=== PATIENT | female | born 1945 | race Caucasian/White ===

== ENCOUNTER 2024-12-01 15:18 | Inpatient (IN) | payer MEDICARE, OTHER ==
[~2024-12-01] VITALS: Ht 157.5 cm; Wt 87.7 kg
--- NOTE | 2024-12-01 15:31 | ED.PDOC ---
History of Present Illness HPI Comments 79-year-old female with PMHx HTN, A-Fib, Neuropathy brought in by EMS presents with a chief complaint of wounds to bilateral legs. Patient states that she has bilateral wounds to her legs. Patients legs are red in color and bumped her leg into the set and exhibit designer and the wound began to leak pus. Patients leg wound has saturated the EMS gurney with leaking. Chief Complaint: Extremity Swelling Time Seen by MD: 15:23 Reviewed Notes: Nurses Notes, Medications, Allergies Allergies: Coded Allergies: Cephalexin (Verified Allergy, Severe, 12/01/24) Penicillins (Verified Allergy, Severe, 12/01/24) Information Source: Patient Mode of Arrival: Ambulatory Severity: Moderate Timing: Days Duration: Since onset Prehospital treatment: None Past Medical History PAST MEDICAL HISTORY: AFIB, HTN Surgical History: Cholecystectomy, Tonsillectomy Surgical History (Other): CATARACTS DIALYSIS RN History: Denies all DIALYSIS RN Hx Family History Family History: Reviewed,noncontributory to illness Social History Smoker: Non-Smoker Alcohol: Denies ETOH Use Drugs: Denies Drug Use Lives In: Home Constitutional: denies: chills, diaphoresis, fatigue, fever, malaise, sweats, weakness, others EENTM: denies: blurred vision, double vision, ear bleeding, ear discharge, ear drainage, ear pain, ear ringing, eye pain, eye redness, hearing loss, mouth pain, mouth swelling, nasal discharge, nose bleeding, nose congestion, nose pain, photophobia, tearing, throat pain, throat swelling, voice changes, others Respiratory: denies: cough, hemoptysis, orthopnea, SOB at rest, shortness of breath, SOB with excertion, stridor, wheezing, others Cardiovascular: denies: chest pain, dizzy spells, diaphoresis, Dyspnea on exertion, edema, irregular heart beat, left arm pain, lightheadedness, palpitations, PND, syncope, others Gastrointestinal: denies: abdomen distended, abdominal pain, blood streaked bowels, constipated, diarrhea, dysphagia, difficulty swallowing, hematemesis, melena, nausea, poor appetite, poor fluid intake, rectal bleeding, rectal pain, vomiting, others Genitourinary: denies: abnormal vagina bleeding, burning, dyspareunia, dysuria, flank pain, frequency, hematuria, incontinence, pain, , vagina discharge, urgency, others Neurological: denies: dizziness, fainting, headache, left sided numbness, left sided weakness, numbness, paresthesia, pre-existing deficit, right sided numbness, right sided weakness, seizure, speech problems, tingling, tremors, weakness, others Musculoskeletal: denies: back pain, gout, joint pain, joint swelling, muscle pain, muscle stiffness, neck pain, others Integumetry: reports: wounds (BILATERAL LEGS); denies: bruises, change in color, change in hair/nails, dryness, laceration, lesions, lumps, rash, others Allergic/Immunocompromised: denies: Difficulty Healing, Frequent Infections, Hives, Itching, others Hematologic/Lymphatic: denies: anemia, blood clots, easy bleeding, easy bruisin g, swollen glands, others Endocrine: denies: excessive hunger, excessive sweating, excessive thirst, excessive urination, flushing, intolerance to cold, intolerance to heat, unexplained weight gain, unexplained weight loss, others Psychiatric: denies: anxiety, bipolar disorder, depression, hopeless, panic disorder, schizophrenia, sleepless, suicidal, others All Other Systems: Reviewed and Negative Physical Exam General Appearance: Moderate Distress, Obese HEENT: Normal ENT Inspection, Pharynx Normal, TMs Normal Neck: Full Range of Motion, Non-Tender, Normal, Normal Inspection Respiratory: Chest Non-Tender, Lungs Clear, No Accessory Muscle Use, No Respiratory Distress, Normal Breath Sounds Cardiovascular: No Edema, No JVD, No Murmur, No Gallop, Normal Peripheral Pulses, Regular Rate/Rhythm Breast Exam: Deferred Gastrointestinal: No Organomegaly, Non Tender, No Pulsatile Mass, Normal Bowel Sounds, Soft Genitalia: Deferred Pelvic: Deferred Rectal: Deferred Extremities: Decreased range of motion, Inflammation, Normal capillary refill, Pedal edema Musculoskeletal : Apperance: Normal Neurologic: Alert, molecular pathologist II-XII nml as Tested, No Motor Deficits, Normal Affect, Normal Mood, No Sensory Deficits Cerebellar Function: Normal Reflexes: Normal Skin: Dry, Normal Color, Warm Lymphatic: No Adenopathy Was a procedure done? Was a procedure done?: No Differential Dx Considerations may include: Cellulitis, osteomyelitis, DVT X-Ray, Labs, Meds, VS Vital Signs Date Time Temp Pulse Resp B/P (MAP) Pulse Ox O2 Delivery O2 Flow Rate FiO2 12/01/24 17:21 97.7 95 13 115/60 (78) 95 97.7 12/01/24 15:59 97.8 98 14 99/39 (59) 95 97.8 12/01/24 15:56 Room Air* 0 21 12/01/24 15:24 97.8 111 16 99/66 (77) 97 97.8 Lab Test 12/01/24 15:40 Range/Units White Blood Count 10.8 4.4-10.8 10^3/uL Red Blood Count 4.42 4.0-5.20 10^6/uL Hemoglobin 13.3 12.2-16.2 g/dL Hematocrit 40.6 36.0-46.0 % Mean Corpuscular Volume 91.7 80.0-100.0 fL Mean Corpuscular Hemoglobin 30.1 28.0-32.0 pg Mean Corpuscular Hemoglobin Concent 32.8 32.0-36.0 g/dL Red Cell Distribution Width 14.3 11.8-14.3 % Platelet Count 379 140-450 10^3/uL Mean Platelet Volume 8.4 6.9-10.8 fL Neutrophils (%) (Auto) 74.0 37.0-80.0 % Lymphocytes (%) (Auto) 15.6 10.0-50.0 % Monocytes (%) (Auto) 8.0 0.0-12.0 % Eosinophils (%) (Auto) 1.8 0.0-7.0 % Basophils (%) (Auto) 0.6 0.0-2.0 % Neutrophils # (Auto) 8.0 1.6-8.6 10 ^3/uL Lymphocytes # (Auto) 1.7 0.4-5.4 10 ^3/uL Monocytes # (Auto) 0.9 0-1.3 10 ^3/uL Eosinophils # (Auto) 0.2 0-0.8 10 ^3/uL Basophils # (Auto) 0.1 0-0.2 10 ^3/uL Nucleated Red Blood Cells 0.1 % Erythrocyte Sedimentation Rate 30 H 0-20 mm/hr Sodium Level 140 136-145 mmol/L Potassium Level 4.5 3.5-5.1 mmol/L Chloride Level 103 98-107 mmol/L Carbon Dioxide Level 29 20-31 mmol/L Anion Gap 8 5-15 Blood Urea Nitrogen 34 H 9-23 mg/dL Creatinine 1.25 H 0.550-1.02 mg/dL Glomerular Filtration Rate Calc 43 >90 mL/min BUN/Creatinine Ratio 27.2 H 10.0-20.0 Serum Glucose 140 H 74-106 mg/dL Calcium Level 9.9 8.7-10.4 mg/dL Current Medications Medications (Trade) Dose Ordered Sig/Priscila Route Start Time Stop Time Status Last Admin Clindamycin Phosphate 50 ml @ 50 mls/hr ONCE ONCE IV 12/01/24 15:45 12/01/24 16:44 DC 12/01/24 16:04 Ultrasound of the lower extremities are negative for DVT The CBC and chemistry panel are within normal limits The BUN is 34 and the creatinine is 1.5 The patient was started on clindamycin IV piggyback The patient was being admitted to the hospitalist Images Reviewed?: Images reviewed and evaluated by me Time of 1ST Reevaluation: 15:53 Reevaluation 1ST: Unchanged Patient Education/Counseling: Diagnosis, Treatment, Prognosis Family Education/Counseling: No Family Present Departure 1 Departure Time of Disposition: 19:26 Impression: Primary Impression: Pedal edema Additional Impression: Bilateral lower leg cellulitis Disposition: ADMITTED INPATIENT Admit to: Med Surg Condition: Fair Critical Care Note Critical Care Time?: No Stability Stability form required: Yes Unstable for transfer: ED Physician Assesment (Clinical assesment) Heart Score Heart Score: Heart Score Response (Comments) Value History N/A 0 EKG N/A 0 Age N/A 0 Risk Factors N/A 0 Troponin N/A 0 Total 0 I personally scribed for DARLENE CRUZ MD ([email or web address]) on 12/01/24 at 15:31. Electronically submitted by Nikos Patrick ([email or web address]). DARLENE CRUZ MD Dec 01, 2024 15:31
[2024-12-01 16:02] LABS: Basophils # (auto) 0.1 10 ^3/uL (0-0.2); Basophils % (auto) 0.6 % (0.0-2.0); Eosinophils # (auto) 0.2 10 ^3/uL (0-0.8); Eosinophils % (auto) 1.8 % (0.0-7.0); Hematocrit 40.6 % (36.0-46.0); Hemoglobin 13.3 g/dL (12.2-16.2); Lymphocytes # (auto) 1.7 10 ^3/uL (0.4-5.4); Lymphocytes % (auto) 15.6 % (10.0-50.0); Mean Corpuscular Hemoglobin 30.1 pg (28.0-32.0); Mean Corpuscular Hgb Conc. 32.8 g/dL (32.0-36.0); Mean Corpuscular Volume 91.7 fL (80.0-100.0); Monocytes # (auto) 0.9 10 ^3/uL (0-1.3); Nucleated Red Blood Cells % 0.1 %; Platelet Count (auto) 379 10^3/uL (140-450); Red Blood Cells 4.42 10^6/uL (4.0-5.20); Red Cell Distribution Width 14.3 % (11.8-14.3); White Blood Cell 10.8 10^3/uL (4.4-10.8)
[2024-12-01] MEDS: CLINDAMYCIN 600MG IV 50 ML IV ONE (16:04)
[2024-12-01 16:09] LABS: Chloride 103 mmol/L (98-107); Potassium 4.5 mmol/L (3.5-5.1); Sodium 140 mmol/L (136-145)
[2024-12-01 16:10] LABS: Anion Gap 8 (5-15); Calcium 9.9 mg/dL (8.7-10.4); Carbon Dioxide 29 mmol/L (20-31)
[2024-12-01 16:15] LABS: BUN/Creatinine Ratio 27.2 (10.0-20.0); Blood Urea Nitrogen 34 mg/dL (9-23); Glucose 140 mg/dL (74-106)
[2024-12-01 16:44] LABS: Erythrocyte Sedimentation Rate 30 mm/hr (0-20)
--- NOTE | 2024-12-01 18:40 | DVH ---
Bilateral lower extremity venous duplex Clinical History: swelling and redness Comparison: None Technique: Duplex Doppler evaluation of the deep venous systems of both lower extremities from the common femora l veins to the popliteal veins including color Doppler and spectral/pulsed waveform analysis was perf ormed. Findings: RIGHT SIDE: The common femoral vein demonstrates appropriate compressibility and waveform variability. There is compressibility/patency of the great saphenous vein at the proximal thigh. The femoral vein demonstrates appropriate compressibility and waveform variability. The deep femoral vein demonstrates appropriate compressibility and waveform variability. The popliteal vein demonstrates appropriate compressibility and waveform variability. There is normal compressibility at the tibioperoneal trunk. LEFT SIDE: The common femoral vein demonstrates appropriate compressibility and waveform variability. There is compressibility/patency of the great saphenous vein at the proximal thigh. The femoral vein demonstrates appropriate compressibility and waveform variability. The deep femoral vein demonstrates appropriate compressibility and waveform variability. The popliteal vein demonstrates appropriate compressibility and waveform variability. There is normal compressibility at the tibioperoneal trunk. Impression: No right or left femoropopliteal venous thrombosis.
[2024-12-01 20:09] VITALS: PULSE 121; RESP 15; O2SAT 94
[2024-12-01 21:35] LABS: Urine Bacteria None Seen /hpf (None Seen)
[2024-12-01 21:52] LABS: Urine Blood Negative /uL (Negative); Urine Clarity Turbid (Clear); Urine Color Yellow (Yellow); Urine Protein, UAD TRACE (Negative); Urine Specific Gravity 1.021 (1.001-1.035); Urine Squamous Epithelial Cell FEW /hpf (<5); Urine Urobilinogen 2 mg/dL (Negative); Urine WBC 8 /HPF (0-5); Urine pH 5.5 (5.0-9.0)
[2024-12-01] MEDS ORDERED: APIX5TAB PO (22:46)
[2024-12-01] MEDS ORDERED: LOSA-535 PO (22:46)
[2024-12-01] MEDS ORDERED: TRAM50TA2 PO (22:46)
[2024-12-01] MEDS ORDERED: BACL20TA PO (22:46)
[2024-12-01] MEDS ORDERED: PANT40T PO (23:04)
--- NOTE | 2024-12-01 23:05 | DVHHPRES ---
History of Present Illness Resident Creating Document: HERNAN BARRERA RESIDENT Reason for Visit: cellulitis History of Present Illness Patient is an 79-year-old female with a past medical history of AFib, Neuropathy, hypertension, bilateral pitting edema presents to the ED after sustaining a cut to her right to big toe. 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 Because of her neuropathy, she does not feel any pains and there are multiple wounds with pus on her legs bilaterally. Patient denies any fever, chills, nausea or chest pain, shortness of breaths, nauseate of vomiting. Venous scan was negative for DVT. Patient is sometime emotional as her in October 2024. Past medical history: AFib, hyperlipidemia, neuropathy in both hands and feet Surgical history: Cholecystectomy, Tonsillectomy Social history: Patient lives at home does not drink or smoke recently , lives alone and cooks for self Family history: Noncontributory Medication history: Patient takes Eliquis, tramadol, baclofen, losartan, and Cymbalta Past Medical History See HPI Smoke: No Review of Systems Review of Systems Constitutional: Denies fever no chills no feeling of malaise HEENT: Denies headache, ear pain, ear discharges, conjunctivitis, nasal discharge throat pain Cardiovascular: Denies chest pain, palpitation, orthopnea, PND; resolving pedal edema Respiratory: Denies shortness of breath, cough cough, sputum production, hemoptysis, GI: Denies abdominal pain, nausea, vomiting, diarrhea, hematemesis, hematochezia, : Denies frequency, urgency, hematuria, Endocrine: Denies unintentional weight gain or weight loss, feeling of hot flashes, Gera: Denies easy bruising, bleeding disorders, epistaxis Musculoskeletal: arthritis in her hands Psych: No evidence of depression, jana, suicidal ideation Allergies: Coded Allergies: Cephalexin (Verified Allergy, Severe, 12/01/24) Penicillins (Verified Allergy, Severe, 12/01/24) Medications Current Medications Medications Dose Ordered Sig/Priscila Route Start Time Stop Time Status Last Admin Dose Admin Clindamycin Phosphate 50 ml @ 50 mls/hr Q8HR IV 12/02/24 06:00 UNV Exam Vital Signs Vital Signs Date Time Temp Pulse Resp B/P (MAP) Pulse Ox O2 Delivery O2 Flow Rate FiO2 12/01/24 22:16 98.0 106 11 122/45 (70) 96 98.0 12/01/24 20:09 Room Air* 0 21 Exam General Appearance: Alert, Oriented X3, Cooperative, No acute distress HEENT: Atraumatic, PERRLA, EOMI, Mucous membrane moist/pink Respiratory: Clear to auscultation, Normal air movement Cardiovascular: Regular rate, Normal S1, Normal S2, No murmurs, no chest wall tenderness Abdominal: NO distention, no tenderness, bowel sounds present, no scars noted Extremities: No clubbing, No cyanosis, resolving edema, Normal pulses, No tenderness/swelling Skin: breakdown, resolving edema, red, poorly demarcation Neuro: Normal gait, Normal speech, Strength at 5/5 X4 ext, Normal tone, Sensation intact, Cranial nerves 3-12 NL, Reflexes 2+ Psych/Mental Status: Mental status NL, Mood NL Labs/Xrays Labs Test 12/01/24 21:15 12/01/24 15:40 Range/Units Urine Color Yellow Yellow Urine Clarity Turbid H Clear Urine pH 5.5 5.0-9.0 Urine Specific [place] 1.021 1.001-1.035 Urine Protein Trace H Negative Urine Ketones Negative Negative Urine Blood Negative Negative /uL Urine Nitrite Negative Negative Urine Bilirubin Negative Negative Urine Urobilinogen 2 H Negative mg/dL Urine Leukocyte Esterase Trace Negative /uL Urine RBC 3 0 - 4 /hpf Urine Microscopic WBC 8 H 0-5 /HPF Urine Squamous Epithelial Cells Few <5 /hpf Urine Bacteria None seen None Seen /hpf Urine Glucose Normal Normal mg/dL White Blood Count 10.8 4.4-10.8 10^3/uL Red Blood Count 4.42 4.0-5.20 10^6/uL Hemoglobin 13.3 12.2-16.2 g/dL Hematocrit 40.6 36.0-46.0 % Mean Corpuscular Volume 91.7 80.0-100.0 fL Mean Corpuscular Hemoglobin 30.1 28.0-32.0 pg Mean Corpuscular Hemoglobin Concent 32.8 32.0-36.0 g/dL Red Cell Distribution Width 14.3 11.8-14.3 % Platelet Count 379 140-450 10^3/uL Mean Platelet Volume 8.4 6.9-10.8 fL Neutrophils (%) (Auto) 74.0 37.0-80.0 % Lymphocytes (%) (Auto) 15.6 10.0-50.0 % Monocytes (%) (Auto) 8.0 0.0-12.0 % Eosinophils (%) (Auto) 1.8 0.0-7.0 % Basophils (%) (Auto) 0.6 0.0-2.0 % Neutrophils # (Auto) 8.0 1.6-8.6 10 ^3/uL Lymphocytes # (Auto) 1.7 0.4-5.4 10 ^3/uL Monocytes # (Auto) 0.9 0-1.3 10 ^3/uL Eosinophils # (Auto) 0.2 0-0.8 10 ^3/uL Basophils # (Auto) 0.1 0-0.2 10 ^3/uL Nucleated Red Blood Cells 0.1 % Erythrocyte Sedimentation Rate 30 H 0-20 mm/hr Sodium Level 140 136-145 mmol/L Potassium Level 4.5 3.5-5.1 mmol/L Chloride Level 103 98-107 mmol/L Carbon Dioxide Level 29 20-31 mmol/L Anion Gap 8 5-15 Blood Urea Nitrogen 34 H 9-23 mg/dL Creatinine 1.25 H 0.550-1.02 mg/dL Glomerular Filtration Rate Calc 43 >90 mL/min BUN/Creatinine Ratio 27.2 H 10.0-20.0 Serum Glucose 140 H 74-106 mg/dL Calcium Level 9.9 8.7-10.4 mg/dL Assessment/Plan Assessment/Plan ASSESSMENT Sepsis secondary to cellulitis Bilateral cellulitis BHANU due to VMN Obesity prediabetic Elevated ESR Lactic acidosis AFIB Neuropathy PLAN Continue antibiotics (Clindamycin) Give IV Hydration and encourage oral hydration wound care consult Continue her home medications DVT prophylaxis:on Eliquis ( home medication) Diet: cardiac diet GI Prophylaxis: protonix Goal of care discussed for more than 25 minutes: Full code Case and plan discussed with Dr. Nevarez Plan discussed with: Patient My Orders Orders - HERNAN BARRERA RESIDENT Procedure Category Date Status Time Admit ADMIT 12/01/24 Transmitted 22:37 Code Status CODE 12/01/24 Transmitted 22:37 Vital Signs CANDIDO 12/01/24 In Process 22:37 Review Orders With CANDIDO 3/26/25 In Process Adm. 22:37 Notify Md Of Changes CANDIDO 12/01/24 In Process From Base 22:37 Advance Directive CANDIDO 12/01/24 In Process 22:37 Patient Condition ORDERS 12/01/24 Transmitted 22:37 Allergies CANDIDO 12/01/24 In Process 22:37 Stat Ekg For Chest CANDIDO 12/01/24 In Process Pain 22:37 Notify Md Of Changes CANDIDO 12/01/24 In Process From Base 22:37 Portrait Painter For CANDIDO 12/01/24 In Process 24 Hours 22:37 Complete Blood Count LAB 12/02/24 Verified 04:00 Comprehensive LAB 12/02/24 Verified Metabolic Panel 04:00 Hemoglobin A1c LAB 12/01/24 In Process 22:37 Clindamycin 300mg Iv PHA 12/02/24 Logged (Cleocin Iv) 06:00 Date of Service: Dec 01, 2024 Billing Provider: AYLA NEVAREZ MD Common Visit Codes: 73311-HMRSPAF INP/OBS CARE (HIGH) Secondary Visit Codes: 52946-[id number] CARE PLAN 30 MINUTES HERNAN BARRERA RESIDENT Dec 01, 2024 23:05 AYLA NEVAREZ MD Dec 02, 2024 11:31
[2024-12-01] MEDS: APIXABAN 5 MG TAB PO SCH (23:20)
[2024-12-01] MEDS: SODIUM CHLORIDE 0.9% 1,000 ML IV SCH (23:21)
[2024-12-01 23:44] LABS: Lactic Acid w/Reflex 2.2 mmol/L (0.4-2.0)
[2024-12-02] VITALS (10 sets, daily range): BP systolic 100–120; BP diastolic 29–78; PULSE 76–96; RESP 16–19; TEMP 98–98.7; O2SAT 90–95
[2024-12-02] MEDS: traMADol HCL 50 MG TAB PO PRN ×2 (02:49→21:30)
[2024-12-02] MEDS: BACLOFEN 10 MG TAB PO SCH (05:14)
[2024-12-02] MEDS: CLINDAMYCIN 300MG IV 50 ML IV SCH (05:14)
[2024-12-02 05:39] LABS: Basophils # (auto) 0.1 10 ^3/uL (0-0.2); Basophils % (auto) 0.6 % (0.0-2.0); Eosinophils # (auto) 0.2 10 ^3/uL (0-0.8); Hematocrit 39.4 % (36.0-46.0); Hemoglobin 12.7 g/dL (12.2-16.2); Lymphocytes # (auto) 2.1 10 ^3/uL (0.4-5.4); Lymphocytes % (auto) 21.8 % (10.0-50.0); Mean Corpuscular Hemoglobin 30.1 pg (28.0-32.0); Mean Corpuscular Hgb Conc. 32.2 g/dL (32.0-36.0); Mean Corpuscular Volume 93.3 fL (80.0-100.0); Monocytes # (auto) 0.9 10 ^3/uL (0-1.3); Monocytes % (auto) 9.8 % (0.0-12.0); Neutrophils # (auto) 6.2 10 ^3/uL (1.6-8.6); Neutrophils % (auto) 65.8 % (37.0-80.0); Nucleated Red Blood Cells % 0.1 %; Platelet Count (auto) 354 10^3/uL (140-450); Red Blood Cells 4.22 10^6/uL (4.0-5.20); Red Cell Distribution Width 14.5 % (11.8-14.3); White Blood Cell 9.5 10^3/uL (4.4-10.8)
[2024-12-02 05:55] LABS: Alanine Aminotransferase 11 U/L (7-40); Albumin 3.3 g/dL (3.2-4.8); Alkaline Phosphatase 102 U/L (46-116); Anion Gap 7 (5-15); Aspartate Aminotransferase 13 U/L (13-40); BUN/Creatinine Ratio 24.2 (10.0-20.0); Bilirubin, Total 0.5 mg/dL (0.2-1.0); Blood Urea Nitrogen 24 mg/dL (9-23); Calcium 9.3 mg/dL (8.7-10.4); Carbon Dioxide 24 mmol/L (20-31); Chloride 108 mmol/L (98-107); Glucose 93 mg/dL (74-106); Potassium 4.2 mmol/L (3.5-5.1); Sodium 139 mmol/L (136-145); Total Protein 5.7 g/dL (5.7-8.2)
[2024-12-02] MEDS ORDERED: AMIO200T13 PO (05:58)
[2024-12-02] MEDS ORDERED: VANCOMYCIN PER PHARMACY 0 MG IV SCH (06:00)
[2024-12-02] MEDS: SODIUM CHLORIDE 0.9% 1,000 ML IV SCH (06:00)
[2024-12-02 06:08] LABS: Triglycerides 126 mg/dL (< 150)
[2024-12-02 06:09] LABS: LDL Cholesterol 70 mg/dL (< 100)
[2024-12-02 06:11] LABS: Cholesterol 137 mg/dL (< 200)
[2024-12-02 06:16] LABS: HDL Cholesterol 37 mg/dL (40-59)
[2024-12-02] MEDS: VANCOMYCIN 1GM/250mL NS or D5W KIT IV SCH (06:37)
--- NOTE | 2024-12-02 08:56 | DVH ---
EXAM: XY CHEST PORTABLE Indication: pulmonary edema to rule out Technique: Single frontal view of the chest was obtained Comparison: None FINDINGS: Lines and Tubes: None Lungs: No focal consolidation. Pleura: No effusion. No pneumothorax. Cardiomediastinal contours: Cardiomegaly Atherosclerotic vascular calcifications of the thoracic aort a are noted. Bones: No acute osseous abnormality. IMPRESSION: No acute cardiopulmonary disease.
[2024-12-02] MEDS: CEFEPIME 1GM/ 50ML 50 ML IV SCH (09:07)
[2024-12-02] MEDS: PANTOPRAZOLE 40 MG/10 ML VIAL INJ IV SCH (09:08)
[2024-12-02] MEDS: AMIODARONE HCL 200 MG TAB PO SCH (09:09)
[2024-12-02] MEDS: VANCOMYCIN 1.25GM/250ML 250 ML IV SCH (09:09)
[2024-12-02] MEDS ORDERED: APIXABAN 5 MG TAB PO SCH (10:00)
[2024-12-02] MEDS ORDERED: LOSARTAN POTASSIUM 50 MG TAB PO SCH (10:00)
--- NOTE | 2024-12-02 10:29 | DVHPNRES ---
Progress Note Date Seen: Dec 02, 2024 Resident Creating Document: RUCHI KRAUSE RESIDENT Has the PT tested + for MRSA If YES, has PT been informed?: No Medical Necessity Reason Pt with a Central, PICC or Fol: No Subjective Review of Systems Patient is an 79-year-old female with a past medical history of AFib, N europathy, hypertension chronic venous stasis presents to the ED after sustaining a cut to her right leg. 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 Because of her neuropathy, she does not feel any pains and there are multiple wounds with pus on her legs bilaterally. Patient denies any fever, chills, nausea or chest pain, shortness of breaths, nauseate of vomiting. Venous scan was negative for DVT. Patient is sometime emotional as her in October 2024. Past medical history: AFib, hyperlipidemia, neuropathy in both hands and feet Surgical history: Cholecystectomy, Tonsillectomy Social history: Patient lives at home does not drink or smoke recently , lives alone and cooks for self Family history: Noncontributory Medication history: Patient takes Eliquis, tramadol, baclofen, losartan, and Cymbalta Past Medical History See HPI Smoke: No Objective vital signs Vital Sign Date Time Temp Pulse Resp B/P (MAP) Pulse Ox O2 Delivery O2 Flow Rate FiO2 12/02/24 10:00 89 18 94 Room Air* 0 21 12/02/24 09:30 98.0 108/48 (68) 98.0 Total Intake and Output 12/01/24 12/01/24 12/02/24 15:00 23:00 07:00 Intake Total 50 ml 725 ml Output Total 200 ml Balance 50 ml 525 ml medications Current Medications Medications Dose Ordered Sig/Priscila Route Start Time Stop Time Status Last Admin Dose Admin Tramadol HCl 50 mg [id number] PRN PO 12/01/24 23:15 12/02/24 02:49 50 MG Baclofen 20 mg TID PO 12/02/24 06:00 12/02/24 05:14 20 MG Apixaban 5 mg BID PO 12/01/24 23:14 12/02/24 09:08 5 MG Sodium Chloride 1,000 ml @ 100 mls/hr Q10H IV 12/02/24 06:00 Cefepime HCl 50 ml @ 12.5 mls/hr Q12HR IV 12/02/24 10:00 Hold 12/02/24 09:07 12.5 MLS/HR Vancomycin HCl 0 ml @ 0 mls/hr UD IV 12/02/24 06:00 Pantoprazole Sodium 40 mg DAILY IV 12/02/24 10:00 12/02/24 09:08 40 MG Amiodarone HCl 200 mg DAILY PO 12/02/24 10:00 12/02/24 09:09 200 MG Vancomycin HCl 250 ml @ 200 mls/hr DAILY@0900 IV 12/03/24 09:00 Examination General Appearance: Alert, Oriented X3, Cooperative, No acute distress HEENT: Atraumatic, PERRLA, EOMI, Mucous membrane moist/pink Respiratory: Clear to auscultation, Normal air movement Cardiovascular: Irregularly irregular; Normal S1, Normal S2, No murmurs, no chest wall tenderness Abdominal: No distention, no tenderness, bowel sounds present, no scars noted Extremities: chronic venous insufficiency bilateral, edema, redness and pus in the right leg, no abscess Neuro: Normal gait, Normal speech, Strength at 5/5 X4 ext, Normal tone, Sensation intact, Cranial nerves 3-12 NL, Reflexes 2+ Psych/Mental Status: Mental status NL, Mood NL laboratory and microbiology Laboratory Tests 12/02/24 04:48 Test 12/02/24 04:48 Range/Units Serum Glucose 93 74-106 mg/dL Labs and/or images reviewed: Labs reviewed by me, Image(s) reviewed by me Problem List/Assessment/Plan Problem List/Assessment/Plan #Sepsis secondary to cellulitis in right leg #Ruled out abscess #Chronic venous stasis dermatitis #BHANU due to VMN #Obesity #prediabetic #Lactic acidosis #A fib #Neuropathy PLAN Continue antibiotics: cefepime + vancomycin CT scan: no abscess ECHO: EF 65% left atrium enlargement wound care consult Continue her home medications: amiodarone BPs soft hold on antihypertensive meds DVT prophylaxis:on Eliquis ( home medication) Diet: cardiac diet GI Prophylaxis: Protonix Goal of care discussed for 20 minutes: Full code Case and plan discussed with Dr. Ortega Plan discussed with: Patient, Other (RN) My Orders My Orders Orders - RUCHI KRAUSE RESIDENT Procedure Category Date Status Time Lower Extremity Non CT 12/02/24 Logged Joint Righ 08:55 Drug Screen LAB 12/02/24 Logged 09:37 Addendum Addendum Addendum I was physically present for the wise portions of the service provided to patient by THE RESIDENT. I have reviewed the documentation, discussed the case with resident and agree with the resident's documentation except as noted. Also the patient's clinical case was discussed with the patient's nurse. This medical document was created using an electronic medical record system with computerized dictation system. Although this document has been carefully reviewed, there might still be some phonetic and typographical errors. These areas are purely typographical due to imperfections of the software programs, and do not reflect any compromise in the patient's medical care. Late signature. Date of Service: Dec 02, 2024 Billing Provider: LOWELL ORTEGA MD Common Visit Codes: 66168-[id number] INP/OBS CARE(HIGH) Secondary Visit Codes: [id number]-[id number] CARE PLAN 30 MINUTES (20 minutes) RUCHI KRAUSE RESIDENT Dec 02, 2024 10:29 LOWELL ORTEGA MD Dec 03, 2024 04:54
--- NOTE | 2024-12-02 13:27 | DVHSR ---
APPROVED REPORT EXAM: LIMITED Two-dimensional and M-mode echocardiogram with Doppler and color Doppler. Blood Pressure: 120/53 mmHg INDICATION pitting edema RISK FACTORS Obesity: Height: 5'2, Weight: 190 DIMENSIONS LVDd4.1 (3.8-5.7cm)LA (2D)5.6 (1.9-4.0cm)Aortic Root3.4 (2.0-3.7cm) LVDs2.3 (2.5-4.0cm)LA (MM) (1.9-4.0cm)Aortic Cusp Exc1.4 (1.5-2.0cm) EF (%) 65.0 (55-70%)Rt. Atrium3.7 (1.9-4.0cm)Asc. Aorta3.0 cm IVSd1.0 (0.7-1.1cm)RV (D) (1.8-2.4cm) PWd1.0 (0.7-1.1cm) Mitral Valve MitralMitral Stenosis E/A ratio0.02D MVAcm2 Aortic Valve Aortic ValveAortic Stenosis LVOT Diameter2.0 (1.8-2.4cm)Doppler AVAcm2 Pulmonic Valve V20.95m/s Other Information Quality : Technically LimitedRhythm : Technically limited study due to body habitus.patient position. Conclusion lvef 65% by visual estimate normal rv function no severe valve abnormaliteis noted left atrium enlarged
--- NOTE | 2024-12-02 13:29 | DVH ---
INDICATION: rule out leg abcess COMPARISON: None TECHNIQUE: CT of the bilateral lower extremity was performed without contrast. Volume transverse imag es were obtained and reconstructed in multiple planes using bone and soft tissue algorithms. Radiation Dose Information: CT Dose: CTDI volume is 7.75 mGy. Dose-length product is 346.45 mGy*cm FINDINGS: The alignment is normal. The joint spaces are normal. There is no fracture, dislocation or aggressive osseous lesion. Advanced degenerative changes of bila teral knees. Small-bowel at lateral knee joint effusion. There is diffuse subcutaneous soft-tissue edema and swelling most prominent at the posterolateral asp ect of the left calf and bilateral ankles and bilateral visualized feet. Postsurgical changes of the left ankle joint. IMPRESSION: Findings are suggestive of diffuse cellulitis and/or edema. No fluid collection or abscess. All CT scans at this medical facility are performed using dose modulation techniques as appropriate t o a performed exam including the following: Automated exposure control was utilized; adjustment of th e MA and/or KV according to patient size; and use of iterative reconstruction technique.
[2024-12-03] VITALS (8 sets, daily range): BP systolic 98–143; BP diastolic 44–89; PULSE 95–115; RESP 16–18; TEMP 96.9–98; O2SAT 92–98
[2024-12-03 06:53] LABS: Basophils # (auto) 0.1 10 ^3/uL (0-0.2); Basophils % (auto) 0.7 % (0.0-2.0); Eosinophils # (auto) 0.3 10 ^3/uL (0-0.8); Eosinophils % (auto) 3.2 % (0.0-7.0); Hematocrit 37.7 % (36.0-46.0); Hemoglobin 12.4 g/dL (12.2-16.2); Lymphocytes # (auto) 2.1 10 ^3/uL (0.4-5.4); Lymphocytes % (auto) 25.2 % (10.0-50.0); Mean Corpuscular Hemoglobin 30.1 pg (28.0-32.0); Mean Corpuscular Hgb Conc. 32.8 g/dL (32.0-36.0); Mean Corpuscular Volume 91.7 fL (80.0-100.0); Monocytes # (auto) 0.8 10 ^3/uL (0-1.3); Monocytes % (auto) 10.2 % (0.0-12.0); Neutrophils % (auto) 60.7 % (37.0-80.0); Nucleated Red Blood Cells % 0.1 %; Platelet Count (auto) 314 10^3/uL (140-450); Red Blood Cells 4.11 10^6/uL (4.0-5.20); Red Cell Distribution Width 14.2 % (11.8-14.3); White Blood Cell 8.2 10^3/uL (4.4-10.8)
[2024-12-03 06:57] LABS: Alanine Aminotransferase 10 U/L (7-40); Albumin 3.2 g/dL (3.2-4.8); Alkaline Phosphatase 94 U/L (46-116); Anion Gap 8 (5-15); BUN/Creatinine Ratio 21.4 (10.0-20.0); Bilirubin, Total 0.4 mg/dL (0.2-1.0); Blood Urea Nitrogen 18 mg/dL (9-23); Calcium 9.4 mg/dL (8.7-10.4); Carbon Dioxide 26 mmol/L (20-31); Glucose 85 mg/dL (74-106); Potassium 3.9 mmol/L (3.5-5.1); Sodium 143 mmol/L (136-145)
[2024-12-03 06:58] LABS: Aspartate Aminotransferase 13 U/L (13-40); Chloride 109 mmol/L (98-107); Total Protein 5.5 g/dL (5.7-8.2)
[2024-12-03] MEDS: VANCOMYCIN 1.25GM/250ML 250 ML IV SCH (09:53)
--- NOTE | 2024-12-03 20:53 | DVHPNRES ---
Progress Note Date Seen: Dec 03, 2024 Resident Creating Document: RUCHI KRAUSE RESIDENT Has the PT tested + for MRSA If YES, has PT been informed?: No Medical Necessity Reason Pt with a Central, PICC or Fol: No Medical Necessity Reason Patient is an 79-year-old female with a past medical history of AFib, N europathy, hypertension chronic venous stasis presents to the ED after sustaining a cut to her right leg. 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 Because of her neuropathy, she does not feel any pains and there are multiple wounds with pus on her legs bilaterally. Patient denies any fever, chills, nausea or chest pain, shortness of breaths, nauseate of vomiting. Venous scan was negative for DVT. Patient is sometime emotional as her in October 2024. Elevated D-dimer; DVT ruled out; saturating well on room air with no tachycardia so no need to rule out PE. Past medical history: AFib; hyperlipidemia, neuropathy in both hands and feet Surgical history: Cholecystectomy, Tonsillectomy Social history: Patient lives at home does not drink or smoke recently , lives alone and cooks for self Family history: Noncontributory Medication history: Patient takes Eliquis, tramadol, baclofen, losartan, and Cymbalta Past Medical History See HPI Smoke: No culture positive: gram neg prelim, dc vancomycin Objective vital signs Vital Sign Date Time Temp Pulse Resp B/P (MAP) Pulse Ox O2 Delivery O2 Flow Rate FiO2 12/03/24 17:00 96.9 115 18 142/89 (106) 92 96.9 12/03/24 08:00 Room Air* 0 21 Total Intake and Output 12/02/24 12/02/24 12/03/24 14:59 22:59 06:59 Intake Total 550 ml 200 ml 200 ml Balance 550 ml 200 ml 200 ml medications Current Medications Medications Dose Ordered Sig/Priscila Route Start Time Stop Time Status Last Admin Dose Admin Baclofen 20 mg TID PO 12/02/24 06:00 12/03/24 14:34 20 MG Apixaban 5 mg BID PO 12/01/24 23:14 12/03/24 09:53 5 MG Sodium Chloride 1,000 ml @ 100 mls/hr Q10H IV 12/02/24 06:00 12/03/24 09:54 100 MLS/HR Cefepime HCl 50 ml @ 12.5 mls/hr Q12HR IV 12/02/24 10:00 Hold 12/02/24 09:07 12.5 MLS/HR Pantoprazole Sodium 40 mg DAILY IV 12/02/24 10:00 12/03/24 09:53 40 MG Amiodarone HCl 200 mg DAILY PO 12/02/24 10:00 12/03/24 09:53 200 MG Tramadol HCl 50 mg Q4HPRN PRN PO 12/02/24 21:15 12/03/24 14:34 50 MG Examination General Appearance: Alert, Oriented X3, Cooperative, No acute distress HEENT: Atraumatic, PERRLA, EOMI, Mucous membrane moist/pink Respiratory: Clear to auscultation, Normal air movement Cardiovascular: Irregularly irregular; Normal S1, Normal S2, No murmurs, no chest wall tenderness Abdominal: No distention, no tenderness, bowel sounds present, no scars noted Extremities: chronic venous insufficiency bilateral, edema, redness and pus in the right leg, no abscess, multiple wounds in left leg Neuro: Normal gait, Normal speech, Strength at 5/5 X4 ext, Normal tone, Sensation intact, Cranial nerves 3-12 NL, Reflexes 2+ Psych/Mental Status: Mental status NL, Mood NL laboratory and microbiology Laboratory Tests 12/03/24 05:19 Test 12/03/24 05:19 Range/Units Serum Glucose 85 74-106 mg/dL Microbiology Date/Time Source Procedure Growth Status 12/02/24 09:01 Blood Blood Culture - Preliminary NO GROWTH AFTER 24 HOURS OF INCUBATION. Resulted 12/02/24 05:05 Leg Left Gram Stain - Final Resulted 12/02/24 05:05 Leg Left Wound Culture - Preliminary Resulted 12/01/24 21:15 Voided Urine Urine Culture - Preliminary Resulted Labs and/or images reviewed: Labs reviewed by me, Image(s) reviewed by me Problem List/Assessment/Plan Problem List/Assessment/Plan #Sepsis secondary to cellulitis bilateral legs #ruled out abscess #Chronic venous stasis dermatitis #BHANU due to VMN #Obesity #prediabetic #Lactic acidosis #A fib #Neuropathy #DVT ruled out #PE ruled out PLAN Continue antibiotics: cefepime CT scan: no abscess ECHO: EF 65% left atrium enlargement wound care consult Continue her home medications: amiodarone BPs soft hold on antihypertensive meds Consulted Forensic Computer Examiner for home health for wound care and PT DVT prophylaxis:on Eliquis ( home medication) Diet: cardiac diet GI Prophylaxis: Protonix Goal of care discussed: Full code Case and plan discussed with Dr. Ortega Plan discussed with: Patient, Other (Nurse) Dietary Evaluation Review Comments: 1. Follow a CCHO-60 Cardiac 2 gNa low fat Low cholesterol diet to better control blood glucose, and heart conditions; maintain A1C WNL. 2. Promote healing with Dioni organge flavor BID Expected Outcomes/Goals: controlled pre-diabetes, healed wounds. Addendum Addendum Addendum I was physically present for the wise portions of the service provided to patient by THE RESIDENT. I have reviewed the documentation, discussed the case with resident and agree with the resident's documentation except as noted. Also the patient's clinical case was discussed with the patient's nurse. This medical document was created using an electronic medical record system with computerized dictation system. Although this document has been carefully reviewed, there might still be some phonetic and typographical errors. These areas are purely typographical due to imperfections of the software programs, and do not reflect any compromise in the patient's medical care. Late signature. Date of Service: Dec 03, 2024 Billing Provider: LOWELL ORTEGA MD Common Visit Codes: [id number] INP/OBS CARE(HIGH) RUCHI KRAUSE RESIDENT Dec 03, 2024 20:53 LOWELL ORTEGA MD Dec 04, 2024 06:39
[2024-12-04] VITALS (8 sets, daily range): BP systolic 110–158; BP diastolic 56–96; PULSE 106–133; RESP 17–18; TEMP 97.4–98.1; O2SAT 95–100
[2024-12-04 08:05] LABS: Basophils # (auto) 0.1 10 ^3/uL (0-0.2); Basophils % (auto) 0.8 % (0.0-2.0); Eosinophils # (auto) 0.3 10 ^3/uL (0-0.8); Eosinophils % (auto) 3.2 % (0.0-7.0); Hemoglobin 15.3 g/dL (12.2-16.2); Lymphocytes # (auto) 1.5 10 ^3/uL (0.4-5.4); Lymphocytes % (auto) 18.2 % (10.0-50.0); Mean Corpuscular Hemoglobin 30.3 pg (28.0-32.0); Mean Corpuscular Hgb Conc. 32.5 g/dL (32.0-36.0); Mean Corpuscular Volume 93.3 fL (80.0-100.0); Monocytes # (auto) 0.8 10 ^3/uL (0-1.3); Monocytes % (auto) 9.3 % (0.0-12.0); Neutrophils # (auto) 5.8 10 ^3/uL (1.6-8.6); Neutrophils % (auto) 68.5 % (37.0-80.0); Nucleated Red Blood Cells % 0.2 %; Platelet Count (auto) 296 10^3/uL (140-450); Red Blood Cells 5.03 10^6/uL (4.0-5.20); Red Cell Distribution Width 14.5 % (11.8-14.3); White Blood Cell 8.4 10^3/uL (4.4-10.8)
[2024-12-04 08:21] LABS: Alanine Aminotransferase 13 U/L (7-40); Albumin 3.5 g/dL (3.2-4.8); Alkaline Phosphatase 109 U/L (46-116); Calcium 9.7 mg/dL (8.7-10.4); Chloride 106 mmol/L (98-107)
[2024-12-04 08:22] LABS: Anion Gap 13 (5-15); Aspartate Aminotransferase 15 U/L (13-40); BUN/Creatinine Ratio 14.1 (10.0-20.0); Bilirubin, Total 0.4 mg/dL (0.2-1.0); Blood Urea Nitrogen 11 mg/dL (9-23); Carbon Dioxide 23 mmol/L (20-31); Glucose 94 mg/dL (74-106); Sodium 142 mmol/L (136-145); Total Protein 6.1 g/dL (5.7-8.2)
[2024-12-04] MEDS: LOSARTAN POTASSIUM 50 MG TAB PO SCH (10:00)
--- NOTE | 2024-12-04 10:07 | DVH ---
EXAM: CT HEAD WITHOUT CONTRAST HISTORY: AMS COMPARISON: None TECHNIQUE: Axial images were obtained and reformatted in coronal and sagittal planes. All CT scans at this medical facility are performed using dose modulation techniques as appropriate t o a performed exam including the following: Automated exposure control was utilized; adjustment of th e MA and/or KV according to patient size; and use of iterative reconstruction technique. CT Dose: CTDI volume is 64 mGy. Dose-length product is 1133 mGy*cm FINDINGS: Supratentorial Region: No evidence for large acute territorial ischemia. No intracranial hemorrhage is noted. Posterior Fossa: No acute abnormality. Brainstem: Unremarkable. Sellar/Suprasellar Region: Unremarkable. Ventricles, Cisterns, Sulci: Age-appropriate. Orbits: Unremarkable. Paranasal Sinuses: Unremarkable. Mastoid Air Cells: Unremarkable. Vasculature: Intracranial arterial calcified plaque formation noted. Bones/Soft Tissues: No acute abnormality. Other: None. IMPRESSION: 1. No acute intracranial process.
[2024-12-04] MEDS: ERTAPENEM SOD INJ 1 GM in SODIUM CHL 0.9% 50 ML IV ONE (11:30)
[2024-12-04] MEDS: ERTAPENEM SOD INJ 1 GM in SODIUM CHL 0.9% 50 ML IV SCH (14:43)
[2024-12-04] MEDS: CLINDAMYCIN 600MG IV 50 ML IV SCH (15:07)
--- NOTE | 2024-12-04 16:11 | DVHPNRES ---
Progress Note Date Seen: Dec 04, 2024 Resident Creating Document: RUCHI KRAUSE RESIDENT Has the PT tested + for MRSA If YES, has PT been informed?: No Medical Necessity Reason Pt with a Central, PICC or Fol: No Subjective Review of Systems Patient is an 79-year-old female with a past medical history of AFib, N europathy, hypertension chronic venous stasis presents to the ED after sustaining a cut to her right leg. 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 Because of her neuropathy, she does not feel any pains and there are multiple wounds with pus on her legs bilaterally. Patient denies any fever, chills, nausea or chest pain, shortness of breaths, nauseate of vomiting. Venous scan was negative for DVT. Patient is sometime emotional as her in October 2024. Elevated D-dimer; DVT ruled out; saturating well on room air with no tachycardia so no need to rule out PE. Past medical history: AFib; hyperlipidemia, neuropathy in both hands and feet Surgical history: Cholecystectomy, Tonsillectomy Social history: Patient lives at home does not drink or smoke recently , lives alone and cooks for self Family history: Noncontributory Medication history: Patient takes Eliquis, tramadol, baclofen, losartan, and Cymbalta Past Medical History See HPI Smoke: No Today the patient had an episode of AMS, patient was more drowsy than usual, baclofen was DC, Head CT scan normal, patient is being of afib HR 110-120, antibiotics were changed: ertapenem + clindamycin, klebsiella is growing in wound cultures. In the afternoon patient is more alert, most likely was due to the baclofen. Objective vital signs Vital Sign Date Time Temp Pulse Resp B/P (MAP) Pulse Ox O2 Delivery O2 Flow Rate FiO2 12/04/24 13:00 97.8 117 17 158/89 (112) 100 97.8 12/04/24 08:00 Room Air* 0 21 Total Intake and Output 12/03/24 12/03/24 12/04/24 15:00 23:00 07:00 Intake Total 250 ml 1388 ml 0 ml Balance 250 ml 1388 ml 0 ml medications Current Medications Medications Dose Ordered Sig/Priscila Route Start Time Stop Time Status Last Admin Dose Admin Sodium Chloride 1,000 ml @ 100 mls/hr Q10H IV 12/02/24 06:00 12/03/24 09:54 100 MLS/HR Pantoprazole Sodium 40 mg DAILY IV 12/02/24 10:00 12/04/24 10:29 40 MG Amiodarone HCl 200 mg DAILY PO 12/02/24 10:00 12/04/24 10:00 200 MG Tramadol HCl 50 mg Q4HPRN PRN PO 12/02/24 21:15 12/03/24 14:34 50 MG Losartan Potassium 100 mg DAILY PO 12/04/24 10:00 12/04/24 10:00 100 MG Ertapenem 1 gm/ Sodium Chloride 50 ml @ 100 mls/hr DAILY IV 12/05/24 10:00 Clindamycin Phosphate 50 ml @ 50 mls/hr Q8HR IV 12/04/24 14:00 12/04/24 15:07 50 MLS/HR Enoxaparin Sodium 40 mg Q12HR SC 12/04/24 22:00 Examination General Appearance: drowsy, confused am, but later pm she is alert HEENT: Atraumatic, PERRLA, EOMI, Mucous membrane moist/pink Respiratory: Clear to auscultation, Normal air movement Cardiovascular: Irregularly irregular; Normal S1, Normal S2, No murmurs, no chest wall tenderness Abdominal: No distention, no tenderness, bowel sounds present, no scars noted Extremities: chronic venous insufficiency bilateral, edema, redness and pus in the right leg, no abscess, multiple wounds in left leg Neuro: Normal gait, Normal speech, Strength at 5/5 X4 ext, Normal tone, Sensation intact, Cranial nerves 3-12 NL, Reflexes 2+ Psych/Mental Status: Mental status NL, Mood NL laboratory and microbiology Laboratory Tests 12/04/24 06:22 Test 12/04/24 06:22 Range/Units Serum Glucose 94 74-106 mg/dL Microbiology Date/Time Source Procedure Growth Status 12/02/24 09:01 Blood Blood Culture - Preliminary NO GROWTH AFTER 48 HOURS OF INCUBATION. Resulted 12/02/24 05:05 Leg Left Gram Stain - Final Resulted 12/02/24 05:05 Wound Culture - Preliminary Klebsiella pneumoniae Resulted 12/01/24 21:15 Voided Urine Urine Culture - Final Complete Problem List/Assessment/Plan Problem List/Assessment/Plan #Acute metabolic encephalopathy secondary to sepsis/medication #Sepsis secondary to cellulitis bilateral legs: klebsiella isolated #ruled out abscess #Chronic venous stasis dermatitis #BHANU due to VMN #Obesity #prediabetic #Lactic acidosis #A fib with RVR #Neuropathy #Hypertension #DVT ruled out #PE ruled out PLAN Start ertapenem + clindamycin Head CT scan negative Place Domínguez catheter Right leg CT scan: no abscess ECHO: EF 65% left atrium enlargement wound care consult Continue her home medications: amiodarone, losartan BPs soft hold on antihypertensive meds Consulted Manager Clinical Services for home health for wound care and PT DC baclofen DVT prophylaxis:Enoxaparin BID Diet: cardiac diet GI Prophylaxis: Protonix Goal of care discussed: Full code Case and plan discussed with Dr. Thomas Plan discussed with: Patient, Other (rn) My Orders My Orders Orders - RUCHI KRAUSE RESIDENT Procedure Category Date Status Time Pt Request For Service PT 12/03/24 Logged 20:54 * Manager Clinical Services CONS 12/03/24 Transmitted Consult Losartan Tablet PHA 12/04/24 In Process (Cozaar Tablet) 10:[address] 12/04/24 Resulted 09:26 Ertapenem Sod Inj PHA 12/05/24 In Process (Invanz) 10:00 Clindamycin 600mg Iv PHA 12/04/24 In Process (Cleocin Iv) 14:00 Insert Domínguez Catheter CANDIDO 12/04/24 In Process 11:17 Enoxaparin Sodium PHA 12/04/24 In Process (Lovenox) 22:00 Dietary Evaluation Review Comments: 1. Follow a CCHO-60 Cardiac 2 gNa low fat Low cholesterol diet to better control blood glucose, and heart conditions; maintain A1C WNL. 2. Promote healing with Dioni organge flavor BID Expected Outcomes/Goals: controlled pre-diabetes, healed wounds. Date of Service: Dec 04, 2024 Billing Provider: TYRONE THOMAS MD Common Visit Codes: [id number] INP/OBS CARE(MOD) RUCHI KRAUSE Dec 04, 2024 16:11 TYRONE THOMAS MD Dec 04, 2024 22:04
[2024-12-04 16:34] LABS: Amphetamine Screen, Urine Neg (NEGATIVE); Barbiturate Scree,Urine Neg (NEGATIVE); Benzodiazephine Screen, Urine Neg (NEGATIVE); Cannabinoid Screen, Urine Neg (NEGATIVE); Cocaine Screen, Urine Neg (NEGATIVE); Opiate Scree,Urine Neg (NEGATIVE); Phencyclidine Screen, Urine Neg (NEGATIVE)
[2024-12-04] MEDS ORDERED: ENOXAPARIN SOD 80 MG/0.8ML SYRINGE SC SCH (22:00)
[2024-12-04] MEDS: ENOXAPARIN SOD 80 MG/0.8ML SYRINGE SC SCH (23:12)
[2024-12-05] VITALS (8 sets, daily range): BP systolic 97–189; BP diastolic 29–76; PULSE 18–137; RESP 14–18; TEMP 97.7–99; O2SAT 90–97
[2024-12-05 06:58] LABS: Alanine Aminotransferase 10 U/L (7-40); Albumin 3.3 g/dL (3.2-4.8); Alkaline Phosphatase 101 U/L (46-116); Anion Gap 9 (5-15); Aspartate Aminotransferase 14 U/L (13-40); Bilirubin, Total 0.4 mg/dL (0.2-1.0); Blood Urea Nitrogen 12 mg/dL (9-23); Calcium 9.6 mg/dL (8.7-10.4); Carbon Dioxide 25 mmol/L (20-31); Chloride 106 mmol/L (98-107); Glucose 92 mg/dL (74-106); Potassium 4.2 mmol/L (3.5-5.1); Sodium 140 mmol/L (136-145); Total Protein 5.8 g/dL (5.7-8.2)
[2024-12-05 10:12] LABS: Basophils # (auto) 0 10 ^3/uL (0-0.2); Basophils % (auto) 0.3 % (0.0-2.0); Eosinophils # (auto) 0.1 10 ^3/uL (0-0.8); Eosinophils % (auto) 1.4 % (0.0-7.0); Hematocrit 42.7 % (36.0-46.0); Lymphocytes # (auto) 1.6 10 ^3/uL (0.4-5.4); Lymphocytes % (auto) 14.9 % (10.0-50.0); Mean Corpuscular Hgb Conc. 32.7 g/dL (32.0-36.0); Mean Corpuscular Volume 91.8 fL (80.0-100.0); Monocytes # (auto) 0.7 10 ^3/uL (0-1.3); Monocytes % (auto) 6.3 % (0.0-12.0); Neutrophils # (auto) 8.2 10 ^3/uL (1.6-8.6); Neutrophils % (auto) 77.1 % (37.0-80.0); Platelet Count (auto) 365 10^3/uL (140-450); Red Blood Cells 4.66 10^6/uL (4.0-5.20); Red Cell Distribution Width 14.2 % (11.8-14.3); White Blood Cell 10.7 10^3/uL (4.4-10.8)
--- NOTE | 2024-12-05 10:46 | DVHPN2 ---
Subjective Feels the same. Reviewed: Care Plan, H&P, Labs, Medications, Previous Orders, Radiology Changes from previous H/P or p: No Changes Objective Vitals Vital Signs Date Time Temp Pulse Resp B/P (MAP) Pulse Ox O2 Delivery O2 Flow Rate FiO2 12/05/24 09:39 118/78 12/05/24 09:00 97.9 18 14 90 97.9 12/05/24 08:00 Room Air* 0 21 Intake/Output Intake and Output 12/05/24 06:59 Intake Total 700 ml Balance 700 ml Intake Oral 600 ml IV Total 100 ml # Voids 2 General Appearance: Alert, Oriented X3, Cooperative, No acute distress HEENT: Atraumatic Lungs: Clear to auscultation Cardiovascular: Other (Irregularly irregular tachycardia) Extremities: Other (Bilateral lower extremities redness and open wound especially in the left foot) Medications Current Medications Medications Dose Ordered Sig/Priscila Route Start Time Stop Time Status Last Admin Dose Admin Sodium Chloride 1,000 ml @ 100 mls/hr Q10H IV 12/02/24 06:00 12/03/24 09:54 100 MLS/HR Tramadol HCl 50 mg Q4HPRN PRN PO 12/02/24 21:15 12/05/24 03:38 50 MG Losartan Potassium 100 mg DAILY PO 12/04/24 10:00 12/05/24 09:39 100 MG Levofloxacin/ Dextrose 100 ml @ 100 mls/hr DAILY IV 12/06/24 10:00 UNV Amiodarone HCl 400 mg TID PO 12/05/24 10:30 UNV Enoxaparin Sodium 80 mg Q12HR SC 12/05/24 22:00 UNV Famotidine 20 mg Q12HR PO 12/05/24 22:00 UNV Laboratory Results Laboratory Tests 12/05/24 05:51 12/05/24 09:49 Chemistry Test 12/05/24 05:51 Albumin 3.3 g/dL (3.2-4.8) Calcium Level 9.6 mg/dL (8.7-10.4) Total Protein 5.8 g/dL (5.7-8.2) LFT Test 12/05/24 05:51 Alanine Aminotransferase (ALT) 10 U/L (7-40) Alkaline Phosphatase 101 U/L (46-116) Aspartate Amino Transferase (AST) 14 U/L (13-40) Total Bilirubin 0.4 mg/dL (0.2-1.0) Urinalysis Test 12/01/24 21:15 Urine Color Yellow (Yellow) Urine Clarity Turbid (Clear) H Urine pH 5.5 (5.0-9.0) Urine Specific [place] 1.021 (1.001-1.035) Urine Protein Trace (Negative) H Urine Ketones Negative (Negative) Urine Blood Negative /uL (Negative) Urine Nitrite Negative (Negative) Urine Bilirubin Negative (Negative) Urine Urobilinogen 2 mg/dL (Negative) H Urine Leukocyte Esterase Trace /uL (Negative) Urine RBC 3 /hpf (0 - 4) Urine Microscopic WBC 8 /HPF (0-5) H Urine Squamous Epithelial Cells Few /hpf (<5) Urine Bacteria None seen /hpf (None Seen) Urine Glucose Normal mg/dL (Normal) Microbiology Microbiology Date/Time Source Procedure Growth Status 12/04/24 15:00 Voided Urine Urine Culture - Preliminary Resulted 12/02/24 09:01 Blood Blood Culture - Preliminary NO GROWTH AFTER 72 HOURS OF INCUBATION. Resulted 12/02/24 05:05 Leg Left Gram Stain - Final Resulted 12/02/24 05:05 Wound Culture - Preliminary Klebsiella pneumoniae Resulted Assessment/Plan Assessment/Plan AFib with RVR Bilateral lower extremity cellulitis with sepsis and septic encephalopathy Bilateral lower extremities wounds especially in the left foot Chronic venous stasis dermatitis Acute kidney injury Obesity Peripheral neuropathy Prediabetes with A1c 5.8 Status post altered level of consciousness yesterday most likely due to baclofen Plan: Change antibiotic to Levaquin as the culture is growing Klebsiella pneumoniae sensitive to it. We will stop Invanz and clindamycin. Increase amiodarone to 400 t.i.d. until heart rate is better controlled. Further plan per orders Plan discussed with: Patient, Other (Nursing) My Orders Orders - TYRONE THOMAS MD Procedure Category Date Status Time * Podiatry Doctor CONS 12/04/24 Transmitted Consult Levofloxacin 500mg PHA 12/06/24 Logged (Levaquin 500mg/ 100m 10:00 Levofloxacin 500mg PHA 12/05/24 Logged (Levaquin 500mg/ 100m 10:30 Amiodarone Tablet PHA 12/05/24 Logged (Cordarone Tablet) 10:30 Enoxaparin Sodium PHA 12/05/24 Logged (Lovenox) 22:00 Famotidine Tablet PHA 12/05/24 Logged (Pepcid Tablet) 22:00 Date of Service: Dec 05, 2024 Billing Provider: TYRONE THOMAS MD Common Visit Codes: [id number] INP/OBS CARE(HIGH) TYRONE THOMAS MD Dec 05, 2024 10:46
[2024-12-05] MEDS: levoFLOXacin 500MG 100 ML IV ONE (12:34)
[2024-12-05] MEDS: AMIODARONE HCL 200 MG TAB PO SCH (12:34)
[2024-12-05 12:51] LABS: Erythrocyte Sedimentation Rate 27 mm/hr (0-20)
--- NOTE | 2024-12-05 17:15 | MEDREC ---
[facility] ASP Intervention Section I [facility] ASP Intervention: Review courses of therapy (PLEASE CONSIDER REVIEWING COURSE OF THERAPY ACCORDING TO CULTURE RESULTS ) DESIRAE RILEY PHARMACIST Dec 05, 2024 17:15
[2024-12-05] MEDS ORDERED: LABETALOL HCL 20 MG/4 ML VL IV PRN (20:00)
[2024-12-05] MEDS: ENOXAPARIN SOD 80 MG/0.8ML SYRINGE SC SCH (22:00)
[2024-12-05] MEDS: FAMOTIDINE 20 MG TAB PO SCH (22:26)
[2024-12-06] VITALS (7 sets, daily range): BP systolic 136–162; BP diastolic 57–99; PULSE 79–125; RESP 17–18; TEMP 96.8–98.4; O2SAT 92–97
[2024-12-06] MEDS ORDERED: BACLOFEN 10 MG TAB PO PRN (02:00)
[2024-12-06] MEDS: BACLOFEN 10 MG TAB PO ONE (05:28)
[2024-12-06] MEDS: LINEZOLID 600MG/300ML 300 ML IV SCH (09:25)
[2024-12-06] MEDS: levoFLOXacin 500MG 100 ML IV SCH (09:26)
[2024-12-06] MEDS: LABETALOL HCL 20 MG/4 ML VL IV ONE (09:47)
--- NOTE | 2024-12-06 10:53 | DVHPNRES ---
Progress Note Date Seen: Dec 06, 2024 Resident Creating Document: RUCHI KRAUSE RESIDENT Has the PT tested + for MRSA If YES, has PT been informed?: No Medical Necessity Reason Pt with a Central, PICC or Fol: No Subjective Review of Systems Patient is an 79-year-old female with a past medical history of AFib, N europathy, hypertension chronic venous stasis presents to the ED after sustaining a cut to her right leg. 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 Because of her neuropathy, she does not feel any pains and there are multiple wounds with pus on her legs bilaterally. Patient denies any fever, chills, nausea or chest pain, shortness of breaths, nauseate of vomiting. Venous scan was negative for DVT. Patient is sometime emotional as her in October 2024. Elevated D-dimer; DVT ruled out; saturating well on room air with no tachycardia so no need to rule out PE. Past medical history: AFib; hyperlipidemia, neuropathy in both hands and feet Surgical history: Cholecystectomy, Tonsillectomy Social history: Patient lives at home does not drink or smoke recently , lives alone and cooks for self Family history: Noncontributory Medication history: Patient takes Eliquis, tramadol, baclofen, losartan, and Cymbalta Past Medical History See HPI Smoke: No 12/04/24: the patient had an episode of AMS, patient was more drowsy than usual, baclofen was DC, Head CT scan normal, patient is being of afib HR 110-120, antibiotics were changed: ertapenem + clindamycin, klebsiella is growing in wound cultures. In the afternoon patient is more alert, most likely was due to the baclofen. 12/06/24: multiple organisms isolated in the culture: Klebsiella pneumonie, VRE, staph aureus, strepto B, labor economics professor consult pateint still in afib, metoprolol and nifedipine added Objective vital signs Vital Sign Date Time Temp Pulse Resp B/P (MAP) Pulse Ox O2 Delivery O2 Flow Rate FiO2 12/06/24 09:47 120 162/92 12/06/24 09:00 98.4 18 95 98.4 12/06/24 07:58 Room Air* 0 21 Total Intake and Output 12/05/24 12/05/24 12/06/24 15:00 23:00 07:00 Intake Total 150 ml 218 ml 800 ml Balance 150 ml 218 ml 800 ml medications Current Medications Medications Dose Ordered Sig/Priscila Route Start Time Stop Time Status Last Admin Dose Admin Sodium Chloride 1,000 ml @ 100 mls/hr Q10H IV 12/02/24 06:00 12/06/24 09:47 100 MLS/HR Tramadol HCl 50 mg Q4HPRN PRN PO 12/02/24 21:15 12/06/24 05:28 50 MG Losartan Potassium 100 mg DAILY PO 12/04/24 10:00 12/06/24 09:29 100 MG Levofloxacin/ Dextrose 100 ml @ 100 mls/hr DAILY IV 12/06/24 10:00 12/06/24 09:26 100 MLS/HR Amiodarone HCl 400 mg TID PO 12/05/24 10:30 12/06/24 06:04 400 MG Enoxaparin Sodium 80 mg Q12HR SC 12/05/24 22:00 12/06/24 09:28 80 MG Famotidine 20 mg Q12HR PO 12/05/24 22:00 12/06/24 09:29 20 MG Labetalol HCl 10 mg Q2HPRN PRN IV 12/05/24 20:00 Linezolid 300 ml @ 150 mls/hr Q12HR IV 12/06/24 10:00 12/06/24 09:25 150 MLS/HR Nifedipine 30 mg DAILY PO 12/06/24 10:00 Metoprolol Succinate 25 mg DAILY PO 12/06/24 10:15 Examination General Appearance: alert HEENT: Atraumatic, PERRLA, EOMI, Mucous membrane moist/pink Respiratory: Clear to auscultation, Normal air movement Cardiovascular: Irregularly irregular; Normal S1, Normal S2, No murmurs, no chest wall tenderness Abdominal: No distention, no tenderness, bowel sounds present, no scars noted Extremities: chronic venous insufficiency bilateral, edema, redness and pus in the right leg, no abscess, multiple wounds in left leg Neuro: Normal gait, Normal speech, Strength at 5/5 X4 ext, Normal tone, Sensation intact, Cranial nerves 3-12 NL, Reflexes 2+ Psych/Mental Status: Mental status NL, Mood NL laboratory and microbiology Laboratory Tests 12/05/24 09:49 12/05/24 05:51 Test 12/05/24 05:51 Range/Units Serum Glucose 92 74-106 mg/dL Microbiology Date/Time Source Procedure Growth Status 12/04/24 15:00 Voided Urine Urine Culture - Final Complete 12/02/24 09:01 Blood Blood Culture - Preliminary NO GROWTH AFTER 72 HOURS OF INCUBATION. Resulted 12/02/24 05:05 Leg Left Gram Stain - Final Complete 12/02/24 05:05 Wound Culture - Final Klebsiella pneumoniae Enterococcus faecalis - VRE Staphylococcus aureus Staphylococcus aureus#2 Streptococcus Group B Complete Problem List/Assessment/Plan Problem List/Assessment/Plan #Acute metabolic encephalopathy secondary to sepsis/medication #Sepsis secondary to cellulitis bilateral legs: multiple microorganism isolated #ruled out abscess #Chronic venous stasis dermatitis #BHANU due to VMN #Obesity #prediabetic #Lactic acidosis #A fib with RVR #Neuropathy #Hypertension #DVT ruled out #PE ruled out PLAN Start levaquin + linezolid Head CT scan negative Place Domínguez catheter Right leg CT scan: no abscess ECHO: EF 65% left atrium enlargement wound care consult and podiastris consult Continue her home medications: amiodarone, losartan BPs soft hold on antihypertensive meds Consulted High School Admissions Representative for home health for wound care and PT DC baclofen Start metoprolol Start nifedipine Labetalol PRN DVT prophylaxis:Enoxaparin BID Diet: cardiac diet GI Prophylaxis: Protonix Goal of care discussed: Full code Case and plan discussed with Dr. Hancock Plan discussed with: Patient, Other (rn) My Orders My Orders Orders - RUCHI KRAUSE RESIDENT Procedure Category Date Status Time Linezolid 600mg/300ml PHA 12/06/24 In Process (Zyvox) 10:00 Nifedipine Er PHA 12/06/24 In Process (Procardia Xl 10:00 Metoprolol Xl PHA 12/06/24 In Process Succinate (Toprol Xl) 10:15 Dietary Evaluation Review Comments: 1. Follow a CCHO-60 Cardiac 2 gNa low fat Low cholesterol diet to better control blood glucose, and heart conditions; maintain A1C WNL. 2. Promote healing with Dioni organge flavor BID Expected Outcomes/Goals: controlled pre-diabetes, healed wounds. Date of Service: Dec 06, 2024 Billing Provider: VENESSA HANCOCK MD Common Visit Codes: [id number] INP/OBS CARE(HIGH) RUCHI KRAUSE Dec 06, 2024 10:53 VENESSA HANCOCK MD Dec 06, 2024 22:09
[2024-12-06] MEDS: METOPROLOL SUCCINATE XL 50 MG TAB PO SCH (11:42)
[2024-12-06] MEDS: NIFEdipine ER 30 MG TAB PO SCH (11:43)
[2024-12-06 11:44] LABS: Basophils # (auto) 0.1 10 ^3/uL (0-0.2); Basophils % (auto) 0.6 % (0.0-2.0); Eosinophils # (auto) 0.1 10 ^3/uL (0-0.8); Eosinophils % (auto) 0.5 % (0.0-7.0); Lymphocytes % (auto) 9.1 % (10.0-50.0); Mean Corpuscular Hemoglobin 30.4 pg (28.0-32.0); Mean Corpuscular Hgb Conc. 32.6 g/dL (32.0-36.0); Mean Corpuscular Volume 93.2 fL (80.0-100.0); Monocytes # (auto) 0.7 10 ^3/uL (0-1.3); Monocytes % (auto) 6.6 % (0.0-12.0); Neutrophils # (auto) 8.8 10 ^3/uL (1.6-8.6); Neutrophils % (auto) 83.2 % (37.0-80.0); Nucleated Red Blood Cells % 0.2 %; Platelet Count (auto) 377 10^3/uL (140-450); Red Blood Cells 4.61 10^6/uL (4.0-5.20); Red Cell Distribution Width 14.4 % (11.8-14.3); White Blood Cell 10.5 10^3/uL (4.4-10.8)
[2024-12-06 11:52] LABS: Alanine Aminotransferase 10 U/L (7-40); Albumin 3.4 g/dL (3.2-4.8); Alkaline Phosphatase 96 U/L (46-116); Anion Gap 8 (5-15); Aspartate Aminotransferase 18 U/L (13-40); BUN/Creatinine Ratio 14.6 (10.0-20.0); Bilirubin, Total 0.3 mg/dL (0.2-1.0); Blood Urea Nitrogen 13 mg/dL (9-23); Calcium 9.5 mg/dL (8.7-10.4); Carbon Dioxide 23 mmol/L (20-31); Sodium 141 mmol/L (136-145); Total Protein 5.8 g/dL (5.7-8.2)
[2024-12-06 11:55] LABS: Chloride 110 mmol/L (98-107)
[2024-12-06 11:56] LABS: Glucose 166 mg/dL (74-106)
[2024-12-06 12:18] LABS: CRP High Sensitivity 3.68 mg/dL (<1.0)
[2024-12-06] MEDS: BACLOFEN 10 MG TAB PO PRN (13:50)
--- NOTE | 2024-12-06 16:01 | DVHINCON2 ---
Date Seen: Dec 06, 2024 Reason for Consultation Bilateral foot wounds History of Present Illness Patient is an 79-year-old female with a past medical history of AFib, Neuropathy, hypertension, bilateral pitting edema presents to the ED after sustaining a cut to her right to big toe. 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 Because of her neuropathy, she does not feel any pains and there are multiple wounds with pus on her legs bilaterally. Patient denies any fever, chil ls, nausea or chest pain, shortness of breaths, nauseate of vomiting. Venous scan was negative for DVT. Patient is sometime emotional as her in October 2024. Past Medical History See H&P Past Surgical History See H&P Family History: Cardiovascular disease G8 MOTHER, Onset:Unknown Diabetes mellitus G8 MOTHER, Onset:Unknown FH: brain tumor G8 FATHER, Onset:Unknown Allergies: Coded Allergies: Cephalexin (Verified Allergy, Severe, 12/01/24) Penicillins (Verified Allergy, Severe, 12/01/24) Home Meds Reported Medications Amiodarone HCl (Amiodarone HCl) 200 Mg Tab, 1 TAB PO DAILY 12/02/24 Pantoprazole Sodium Sesquihydr (Pantoprazole Sodium) 40 Mg Tab, 1 TAB PO DAILY 12/01/24 Apixaban Base (ELIQUIS) 5 Mg Tab, 1 TAB PO BID 12/01/24 Tramadol Hcl (Tramadol Hcl) 50 Mg Tab, 1 TAB PO Q4HPRN PRN 12/01/24 Baclofen (Baclofen) 20 Mg Tab, 1 TAB PO TID 12/01/24 Losartan Potassium (Losartan Potassium) 100 Mg Tab, 1 TAB PO DAILY 12/01/24 Current Medications Current Medications Medications (Trade) Dose Ordered Sig/Priscila Route PRN Reason Start Time Stop Time Status Last Admin Levofloxacin/ Dextrose 100 ml @ 100 mls/hr DAILY IV 12/06/24 10:00 12/06/24 09:26 Enoxaparin Sodium (Lovenox) 80 mg Q12HR SC 12/05/24 22:00 12/06/24 09:28 Famotidine (Pepcid Tablet) 20 mg Q12HR PO 12/05/24 22:00 12/06/24 09:29 Baclofen (Liorisal Tablet) 10 mg Q8HP PRN PO FOR MUSCLE SPASM 12/06/24 02:00 12/06/24 09:55 DC Labetalol HCl (Labetalol HCl) 10 mg Q2HPRN PRN IV SBP>150 12/05/24 20:00 Linezolid 300 ml @ 150 mls/hr Q12HR IV 12/06/24 10:00 12/06/24 09:25 Nifedipine (Procardia Xl (Time-Release)) 30 mg DAILY PO 12/06/24 10:00 12/06/24 11:43 Metoprolol Succinate (Toprol Xl) 25 mg DAILY PO 12/06/24 10:15 12/06/24 11:42 Baclofen (Liorisal Tablet) 5 mg Q8HP PRN PO FOR MUSCLE SPASM 12/06/24 13:30 12/06/24 13:50 Vital Signs Vital Signs Date Time Temp Pulse Resp B/P (MAP) Pulse Ox O2 Delivery O2 Flow Rate FiO2 12/06/24 13:30 97.9 101 18 136/88 (104) 96 97.9 12/06/24 07:58 Room Air* 0 21 Physical Exam DERMATOLOGIC EXAM: - Skin is dry and cool to the touch dry bilaterally. - Nails 1-5 of the bilateral foot are thickened, discolored, dystrophic, and tender to palpate with subungual debris - Hair loss noted to bilateral feet - multiple superficial blisters as well as heel blisters VASCULAR EXAM: - DP and PT pulses are palpable bilaterally. - PIPE ORGAN MECHANIC is brisk to all digits. - Feet are cool to touch compared to lower legs bilaterally. NEUROLOGIC EXAM: - Normal light touch sensation to the superficial peroneal, deep peroneal, sural, saphenous, and tibial nerve branches. - Protective sensation is diminished as tested with a 5.07 10g Morris-Sriram bilaterally. MUSCULOSKELETAL EXAM: - No gross deformities - Muscle strength is 5/5 and active motion is pain-free and symmetrical bilaterally - No pain or crepitation with passive range of motion bilaterally to all major pedal joints Labs/Diagnostic Data Labs Test 12/06/24 11:00 12/05/24 09:49 12/04/24 15:00 12/04/24 12:52 Range/Units White Blood Count 10.5 4.4-10.8 10^3/uL Red Blood Count 4.61 4.0-5.20 10^6/uL Hemoglobin 14.0 12.2-16.2 g/dL Hematocrit 43.0 36.0-46.0 % Mean Corpuscular Volume 93.2 80.0-100.0 fL Mean Corpuscular Hemoglobin 30.4 28.0-32.0 pg Mean Corpuscular Hemoglobin Concent 32.6 32.0-36.0 g/dL Red Cell Distribution Width 14.4 H 11.8-14.3 % Platelet Count 377 140-450 10^3/uL Mean Platelet Volume 8.1 6.9-10.8 fL Neutrophils (%) (Auto) 83.2 H 37.0-80.0 % Lymphocytes (%) (Auto) 9.1 L 10.0-50.0 % Monocytes (%) (Auto) 6.6 0.0-12.0 % Eosinophils (%) (Auto) 0.5 0.0-7.0 % Basophils (%) (Auto) 0.6 0.0-2.0 % Neutrophils # (Auto) 8.8 H 1.6-8.6 10 ^3/uL Lymphocytes # (Auto) 1.0 0.4-5.4 10 ^3/uL Monocytes # (Auto) 0.7 0-1.3 10 ^3/uL Eosinophils # (Auto) 0.1 0-0.8 10 ^3/uL Basophils # (Auto) 0.1 0-0.2 10 ^3/uL Nucleated Red Blood Cells 0.2 % Sodium Level 141 136-145 mmol/L Potassium Level 4.0 3.5-5.1 mmol/L Chloride Level 110 H 98-107 mmol/L Carbon Dioxide Level 23 20-31 mmol/L Anion Gap 8 5-15 Blood Urea Nitrogen 13 9-23 mg/dL Creatinine 0.89 0.550-1.02 mg/dL Glomerular Filtration Rate Calc 65 >90 mL/min BUN/Creatinine Ratio 14.6 10.0-20.0 Serum Glucose 166 H 74-106 mg/dL Calcium Level 9.5 8.7-10.4 mg/dL Total Bilirubin 0.3 0.2-1.0 mg/dL Aspartate Amino Transferase (AST) 18 13-40 U/L Alanine Aminotransferase (ALT) 10 7-40 U/L Alkaline Phosphatase 96 46-116 U/L C-Reactive Protein High Sensitivity 3.68 H <1.0 mg/dL Total Protein 5.8 5.7-8.2 g/dL Albumin 3.4 3.2-4.8 g/dL Erythrocyte Sedimentation Rate 27 H 0-20 mm/hr Urine Opiates Screen Neg NEGATIVE Urine Fentanyl Screen Neg NEGATIVE Urine Barbiturates Screen Neg NEGATIVE Urine Phencyclidine Screen Neg NEGATIVE Urine Amphetamines Screen Neg NEGATIVE Urine Benzodiazepines Screen Neg NEGATIVE Urine Cocaine Screen Neg NEGATIVE Urine Cannabinoids Screen Neg NEGATIVE Ammonia 11 11-32 umol/L Test 12/02/24 04:48 12/02/24 00:21 12/01/24 21:15 12/01/24 15:40 Range/Units D-Dimer, Quantitative 0.93 H 0.0-0.49 mg/L FEU B-Type Natriuretic Peptide 88.92 0-100 pg/mL Triglycerides Level 126 < 150 mg/dL Cholesterol Level 137 < 200 mg/dL LDL Cholesterol 70 < 100 mg/dL HDL Cholesterol 37 L 40-59 mg/dL Thyroid Stimulating Hormone (TSH) 1.65 0.55-4.78 uIU/mL Lactic Acid Level 1.5 0.4-2.0 mmol/L Urine Color Yellow Yellow Urine Clarity Turbid H Clear Urine pH 5.5 5.0-9.0 Urine Specific [place] 1.021 1.001-1.035 Urine Protein Trace H Negative Urine Ketones Negative Negative Urine Blood Negative Negative /uL Urine Nitrite Negative Negative Urine Bilirubin Negative Negative Urine Urobilinogen 2 H Negative mg/dL Urine Leukocyte Esterase Trace Negative /uL Urine RBC 3 0 - 4 /hpf Urine Microscopic WBC 8 H 0-5 /HPF Urine Squamous Epithelial Cells Few <5 /hpf Urine Bacteria None seen None Seen /hpf Urine Glucose Normal Normal mg/dL Hemoglobin A1c 5.8 H <5.7 % A1C Microbiology Date/Time Source Procedure Growth Status 12/04/24 15:00 Voided Urine Urine Culture - Final Complete 12/02/24 09:01 Blood Blood Culture - Preliminary NO GROWTH AFTER 72 HOURS OF INCUBATION. Resulted 12/02/24 05:05 Leg Left Gram Stain - Final Complete 12/02/24 05:05 Wound Culture - Final Klebsiella pneumoniae Enterococcus faecalis - VRE Staphylococcus aureus Staphylococcus aureus#2 Streptococcus Group B Complete Problems(with codes): (1) Pedal edema (2) Bilateral lower leg cellulitis (3) Family history of diabetes mellitus (4) Family history of cardiovascular disease (5) FH: brain tumor Plan/Recommendation ASSESSMENT: Patient is a 79-year-old female seen on the floor for worsening wounds and cellulitis PLAN: - The patients chart was reviewed, clinical findings were discussed with the patient, the etiologies of the conditions were discussed in detail, and a treatment plan was agreed to at this time, with both oral and written instructions provided. - reviewed advanced imaging - discussed that the wounds appear superficial at this point - recommend that the heels are offloaded - recommend that she follows up with her town administrator to continue foot care and wound care - recommended home health continues to perform wound care - recommend Betadine over the superficial blisters All questions were answered and concerns addressed to the patient's satisfact ion. The patient was given the phone number to the clinic and was told how to make contact with the clinic should any concerns or questions arise. Patient understands that if any questions or concerns arise prior to the next appointment, we should be contacted immediately. FOLLOW-UP: Continue to follow while inpatient Plan discussed with: Patient Date of Service: Dec 06, 2024 Billing Provider: JEFRY HIRSCH DPM Common Visit Codes: CONSULT ONLY Consultation Codes: [id number] CONSULT <80MIN JEFRY HIRSCH DPM Dec 06, 2024 16:01
[2024-12-06] MEDS ORDERED: ARTIFICIAL TEARS 15ml EACHEYE PRN (18:30)
[2024-12-07 01:00] VITALS: BP 139/79; PULSE 110; RESP 17; TEMP 97.9; O2SAT 96
[2024-12-07 05:00] VITALS: BP 154/84; PULSE 124; RESP 16; TEMP 97.9; O2SAT 94
[2024-12-07 05:51] LABS: Basophils # (auto) 0 10 ^3/uL (0-0.2); Basophils % (auto) 0.4 % (0.0-2.0); Eosinophils # (auto) 0 10 ^3/uL (0-0.8); Eosinophils % (auto) 0.1 % (0.0-7.0); Hematocrit 41.6 % (36.0-46.0); Hemoglobin 13.6 g/dL (12.2-16.2); Lymphocytes # (auto) 1.2 10 ^3/uL (0.4-5.4); Lymphocytes % (auto) 10.1 % (10.0-50.0); Mean Corpuscular Hemoglobin 29.8 pg (28.0-32.0); Mean Corpuscular Hgb Conc. 32.6 g/dL (32.0-36.0); Mean Corpuscular Volume 91.3 fL (80.0-100.0); Monocytes # (auto) 0.6 10 ^3/uL (0-1.3); Monocytes % (auto) 5.5 % (0.0-12.0); Neutrophils # (auto) 9.7 10 ^3/uL (1.6-8.6); Neutrophils % (auto) 83.9 % (37.0-80.0); Nucleated Red Blood Cells % 0.1 %; Platelet Count (auto) 414 10^3/uL (140-450); Red Blood Cells 4.56 10^6/uL (4.0-5.20); Red Cell Distribution Width 14.4 % (11.8-14.3); White Blood Cell 11.6 10^3/uL (4.4-10.8)
[2024-12-07 06:02] LABS: Alanine Aminotransferase 11 U/L (7-40); Albumin 3.4 g/dL (3.2-4.8); Alkaline Phosphatase 93 U/L (46-116); Anion Gap 12 (5-15); Aspartate Aminotransferase 23 U/L (13-40); BUN/Creatinine Ratio 15.5 (10.0-20.0); Bilirubin, Total 0.4 mg/dL (0.2-1.0); Blood Urea Nitrogen 13 mg/dL (9-23); Calcium 9.6 mg/dL (8.7-10.4); Carbon Dioxide 22 mmol/L (20-31); Potassium 3.9 mmol/L (3.5-5.1); Sodium 142 mmol/L (136-145); Total Protein 5.8 g/dL (5.7-8.2)
[2024-12-07 06:03] LABS: Chloride 108 mmol/L (98-107); Glucose 119 mg/dL (74-106)
[2024-12-07 08:00] VITALS: PULSE 109
[2024-12-07 09:00] VITALS: BP 136/86; PULSE 109; RESP 17; TEMP 98.3; O2SAT 92
[2024-12-07] MEDS: ONDANSETRON HCL 4 MG/2 ML VIAL IV PRN (11:05)
[2024-12-07] MEDS ORDERED: LINE1TAB6 PO (11:07)
[2024-12-07] MEDS ORDERED: LEVO500T91 PO (11:07)
[2024-12-07] MEDS ORDERED: ACET-1079 PO (11:07)
--- NOTE | 2024-12-07 11:33 | DVHDSRES ---
Discharge Summary Date of Admission Resident Creating Document: RUCHI KRAUSE RESIDENT Dec 01, 2024 at 22:37 Date of Discharge: Dec 07, 2024 Admitting Diagnosis sepsis due to foot cellulitis Labs/Diagnostic Data: Laboratory Results Test 12/07/24 04:23 12/05/24 09:49 12/04/24 15:00 12/04/24 12:52 White Blood Count 11.6 10^3/uL (4.4-10.8) Red Blood Count 4.56 10^6/uL (4.0-5.20) Hemoglobin 13.6 g/dL (12.2-16.2) Hematocrit 41.6 % (36.0-46.0) Mean Corpuscular Volume 91.3 fL (80.0-100.0) Mean Corpuscular Hemoglobin 29.8 pg (28.0-32.0) Mean Corpuscular Hemoglobin Concent 32.6 g/dL (32.0-36.0) Red Cell Distribution Width 14.4 % (11.8-14.3) Platelet Count 414 10^3/uL (140-450) Mean Platelet Volume 9.0 fL (6.9-10.8) Neutrophils (%) (Auto) 83.9 % (37.0-80.0) Lymphocytes (%) (Auto) 10.1 % (10.0-50.0) Monocytes (%) (Auto) 5.5 % (0.0-12.0) Eosinophils (%) (Auto) 0.1 % (0.0-7.0) Basophils (%) (Auto) 0.4 % (0.0-2.0) Neutrophils # (Auto) 9.7 10 ^3/uL (1.6-8.6) Lymphocytes # (Auto) 1.2 10 ^3/uL (0.4-5.4) Monocytes # (Auto) 0.6 10 ^3/uL (0-1.3) Eosinophils # (Auto) 0 10 ^3/uL (0-0.8) Basophils # (Auto) 0 10 ^3/uL (0-0.2) Nucleated Red Blood Cells 0.1 % Sodium Level 142 mmol/L (136-145) Potassium Level 3.9 mmol/L (3.5-5.1) Chloride Level 108 mmol/L (98-107) Carbon Dioxide Level 22 mmol/L (20-31) Anion Gap 12 (5-15) Blood Urea Nitrogen 13 mg/dL (9-23) Creatinine 0.84 mg/dL (0.550-1.02) Glomerular Filtration Rate Calc 70 mL/min (>90) BUN/Creatinine Ratio 15.5 (10.0-20.0) Serum Glucose 119 mg/dL (74-106) Calcium Level 9.6 mg/dL (8.7-10.4) Total Bilirubin 0.4 mg/dL (0.2-1.0) Aspartate Amino Transferase (AST) 23 U/L (13-40) Alanine Aminotransferase (ALT) 11 U/L (7-40) Alkaline Phosphatase 93 U/L (46-116) C-Reactive Protein High Sensitivity 3.21 mg/dL (<1.0) Total Protein 5.8 g/dL (5.7-8.2) Albumin 3.4 g/dL (3.2-4.8) Erythrocyte Sedimentation Rate 27 mm/hr (0-20) Urine Opiates Screen Neg (NEGATIVE) Urine Fentanyl Screen Neg (NEGATIVE) Urine Barbiturates Screen Neg (NEGATIVE) Urine Phencyclidine Screen Neg (NEGATIVE) Urine Amphetamines Screen Neg (NEGATIVE) Urine Benzodiazepines Screen Neg (NEGATIVE) Urine Cocaine Screen Neg (NEGATIVE) Urine Cannabinoids Screen Neg (NEGATIVE) Ammonia 11 umol/L (11-32) Test 12/02/24 04:48 12/02/24 00:21 12/01/24 21:15 12/01/24 15:40 D-Dimer, Quantitative 0.93 mg/L FEU (0.0-0.49) B-Type Natriuretic Peptide 88.92 pg/mL (0-100) Triglycerides Level 126 mg/dL (< 150) Cholesterol Level 137 mg/dL (< 200) LDL Cholesterol 70 mg/dL (< 100) HDL Cholesterol 37 mg/dL (40-59) Thyroid Stimulating Hormone (TSH) 1.65 uIU/mL (0.55-4.78) Lactic Acid Level 1.5 mmol/L (0.4-2.0) Urine Color Yellow (Yellow) Urine Clarity Turbid (Clear) Urine pH 5.5 (5.0-9.0) Urine Specific [place] 1.021 (1.001-1.035) Urine Protein Trace (Negative) Urine Ketones Negative (Negative) Urine Blood Negative /uL (Negative) Urine Nitrite Negative (Negative) Urine Bilirubin Negative (Negative) Urine Urobilinogen 2 mg/dL (Negative) Urine Leukocyte Esterase Trace /uL (Negative) Urine RBC 3 /hpf (0 - 4) Urine Microscopic WBC 8 /HPF (0-5) Urine Squamous Epithelial Cells Few /hpf (<5) Urine Bacteria None seen /hpf (None Seen) Urine Glucose Normal mg/dL (Normal) Hemoglobin A1c 5.8 % A1C (<5.7) Other Laboratory Tests 12/07/24 04:23 Brief Hx & Hospital Course: Patient is an 79-year-old female with a past medical history of AFib, N europathy, hypertension chronic venous stasis presents to the ED after sustaining a cut to her right leg. 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 Because of her neuropathy, she does not feel any pains and there are multiple wounds with pus on her legs bilaterally. Patient denies any fever, chills, nausea or chest pain, shortness of breaths, nauseate of vomiting. Venous scan was negative for DVT. Patient is sometime emotional as her in October 2024. Elevated D-dimer; DVT ruled out; saturating well on room air with no tachycardia so no need to rule out PE. Past medical history: AFib; hyperlipidemia, neuropathy in both hands and feet Surgical history: Cholecystectomy, Tonsillectomy Social history: Patient lives at home does not drink or smoke recently , lives alone and cooks for self Family history: Noncontributory Medication history: Patient takes Eliquis, tramadol, baclofen, losartan, and Cymbalta Past Medical History See HPI Smoke: No 12/04/24: the patient had an episode of AMS, patient was more drowsy than usual, baclofen was DC, Head CT scan normal, patient is being of afib HR 110-120, antibiotics were changed: ertapenem + clindamycin, klebsiella is growing in wound cultures. In the afternoon patient is more alert, most likely was due to the baclofen. 12/06/24: multiple organisms isolated in the culture: Klebsiella pneumonie, VRE, staph aureus, strepto B, tool and equipment rental clerk consult pateint still in afib, metoprolol and nifedipine added: levofloxacin and linezolid were started, tool and equipment rental clerk consulted fu as outpatient 12/07/24: home health for wound care and PT was already arranged, levaquin and zyvox were prescribed PO, HR is getting less than 110, patient is stable to DC, f/u in DC clinic General Appearance: alert HEENT: Atraumatic, PERRLA, EOMI, Mucous membrane moist/pink Respiratory: Clear to auscultation, Normal air movement Cardiovascular: Irregularly irregular; Normal S1, Normal S2, No murmurs, no chest wall tenderness Abdominal: No distention, no tenderness, bowel sounds present, no scars noted Extremities: chronic venous insufficiency bilateral, edema no abscess, multiple wounds in left leg Neuro: Normal gait, Normal speech, Strength at 5/5 X4 ext, Normal tone, Sensation intact, Cranial nerves 3-12 NL, Reflexes 2+ Psych/Mental Status: Mental status NL, Mood NL Case discussed with Dr Wong Consults/Reason for consult tool and equipment rental clerk due to foot an leg Operations or Procedures INDICATION: rule out leg abcess COMPARISON: None TECHNIQUE: CT of the bilateral lower extremity was performed without contrast. Volume transverse images were obtained and reconstructed in multiple planes using bone and soft tissue algorithms. Radiation Dose Information: CT Dose: CTDI volume is 7.75 mGy. Dose-length product is 346.45 mGy*cm FINDINGS: The alignment is normal. The joint spaces are normal. There is no fracture, dislocation or aggressive osseous lesion. Advanced degenerative changes of bilateral knees. Small-bowel at lateral knee joint effusion. There is diffuse subcutaneous soft-tissue edema and swelling most prominent at the posterolateral aspect of the left calf and bilateral ankles and bilateral visualized feet. Postsurgical changes of the left ankle joint. IMPRESSION: Findings are suggestive of diffuse cellulitis and/or edema. No fluid collection or abscess. Condition at Discharge: Stable Final Diagnosis/Problems List #Acute metabolic encephalopathy secondary to sepsis/medication #Sepsis secondary to cellulitis bilateral legs: klebsiella isolated #ruled out abscess #Chronic venous stasis dermatitis #BHANU due to VMN #Obesity #prediabetic #Lactic acidosis #A fib with RVR #Neuropathy #Hypertension #DVT ruled out #PE ruled out Discharge Disposition: Home with Health Services Discharge Instruct/Medications Diet: Consistent carbohydrate, Cardiac 2g Na,low cholest Activity: Light activity Follow Up/Referral: dc clinic, fu with dr suarez Medications: see prescription Discharge Statement: "Patient was advised to return to the ER or call 911 if any headaches, dizziness, shortness of breath, chest pain, abdominal pain, bleeding, fevers, or worsening of medical condition. Patient was counseled about treatment plan, medications, possible side effects, patientverbalized understanding. All questions were answered to the best of my ability. This discharge took greater then 30 minutes in planning, reviewing documentation, counseling the patient, and discussing with other team members." ASSESSMENT ASSESSMENT Assessment sepsis due to foot cellulitis Date of Service: Dec 07, 2024 Billing Provider: MANDY WONG DO Common Visit Codes: [id number] DISCH DAY >30min RUCHI KRAUSE RESIDENT Dec 07, 2024 11:33 MANDY WONG DO Dec 10, 2024 15:22
[2024-12-07] MEDS: MECLIZINE HCL 25 MG TAB PO ONE (11:51)
[2024-12-07 13:00] VITALS: BP 147/84; PULSE 119; RESP 19; TEMP 97.4; O2SAT 97
[2024-12-07] MEDS: METOCLOPRAMIDE HCL 5MG/ml INJ 2ml VIAL IV ONE (13:19)
[2024-12-07 15:16] VITALS: BP 136/86; PULSE 109
[2024-12-07] MEDS ORDERED: METO5TAB67 PO (15:45)
== END 2024-12-07 13:50 | disposition home or self-care (01) | DRG 871 ==
LOC: EDBD 15:18 → ER 15:26 → OVERFLOW 22:37 → TELE-CENTR 22:46
PROVIDERS: ADMIT Internal Medicine; ATTEND Internal Medicine
DX: A41.59 Other Gram-negative sepsis (principal); G92.8 Other toxic encephalopathy; G93.41 Metabolic encephalopathy; N17.0 Acute kidney failure with tubular necrosis; E87.20 Acidosis, unspecified; L03.115 Cellulitis of right lower limb; L03.116 Cellulitis of left lower limb; E66.9 Obesity, unspecified; I48.91 Unspecified atrial fibrillation; G62.9 Polyneuropathy, unspecified; R73.03 Prediabetes; I10 Essential (primary) hypertension; I87.8 Other specified disorders of veins; Z83.3 Family history of diabetes mellitus; Z82.49 Family history of ischemic heart disease and other diseases of the circulatory system; Z88.0 Allergy status to penicillin; Z88.8 Allergy status to other drugs, medicaments and biological substances; Z79.899 Other long term (current) drug therapy; Z68.34 Body mass index [BMI] 34.0-34.9, adult; B96.1 Klebsiella pneumoniae [K. pneumoniae] as the cause of diseases classified elsewhere
CPT/HCPCS: 36415; 70450; 71045; 73700; 80048; 80053; 80061; 80307; 81001; 82140; 83036; 83605; 83880; 84443; 85025; 85379; 85652; 86141; 87040; 87077; 87086; 87186; 87205; 93306; 93970; 96365; 97110; 97163; 97530; G0378; J1335; J1956; J2405; J2470; J3490

== ENCOUNTER 2025-05-18 15:55 | Inpatient (IN) | payer MEDICARE, OTHER ==
[~2025-05-18] VITALS: Ht 167.6 cm; Wt 138.6 kg
[~2025-05-18 15:55] MED LIST: ACET-1079 PO; ACET-1882 PO; AMIO200T13 PO; APIX5TAB PO; BACL10TA PO; BACL20TA PO; CLIN150C PO; DOXY-286 PO; DULO60CA41 PO; GABA-1250 PO; LEVO500T91 PO; LINE1TAB6 PO; LOSA-535 PO; METO5TAB67 PO; PANT40T PO; PREG100C PO; TRAM50TA2 PO
--- NOTE | 2025-05-18 16:09 | ED.PDOC ---
General HPI Comments This is a 80 year old female SHAHZAD presenting to the ED with chief complaint of urinary frequency. Patient reports that she has been experiencing urinary frequency for the past 2 weeks, being prescribed Bactrim during this time with no relief. Patient relays that her home health nurse received a call from her PCP informing her that recent urine cultures showed positive yeast infection and advised her to come to the ED for IV treatment. Patient denies any N/V/D, abdominal pain, dysuria, or hematuria. Time Seen by MD: 16:07 Primary Care Provider: CODY Reviewed notes: Nurses Notes, Manager Retail Sales Notes, Medications, Allergies Allergies: Coded Allergies: Cephalexin (Verified Allergy, Severe, 12/01/24) Penicillins (Verified Allergy, Severe, 12/01/24) Home Meds Active Scripts Levofloxacin Hemihydrate (LEVAQUIN 500 MG) 500 Mg Tab, 500 MG PO DAILY for 10 Days, #10 TAB Prov:CHRIS LANE MD 02/10/25 Doxycycline Hyclate (DOXYCYCLINE HYCLATE) 100 Mg Tab, 100 MG PO BID for 14 Days, #28 TAB Prov:CHRIS LANE MD 02/10/25 Clindamycin Hcl (CLEOCIN) 150 Mg Cap, 1 CAP PO TID, #30 CAP Prov:VENESSA VINCENT MD 01/08/25 Acetaminophen (Acetaminophen) 325 Mg Tab, 325 MG PO Q4HP PRN for 14 Days, #70 TAB Prov:HERNAN BARRERA 01/07/25 Metoclopramide Hcl (Reglan) 5 Mg Tab, 5 MG PO BID for 5 Days, #10 TAB Prov:RUCHI KRAUSE 12/07/24 Acetaminophen (Tylenol) 325 Mg Tb, 325 MG PO TID for 10 Days, #30 TAB Prov:RUCHI KRAUSE 12/07/24 Linezolid (Zyvox) 600 Mg Tab, 600 MG PO BID for 10 Days, #20 TAB Prov:RUCHI KRAUSE 12/07/24 Levofloxacin Hemihydrate (LEVAQUIN 500 MG) 500 Mg Tab, 500 MG PO DAILY for 10 Days, #10 TAB Prov:RUCHI KRAUSE 12/07/24 Reported Medications Duloxetine Hcl (Cymbalta) 60 Mg Cap, 1 CAP PO TID, #90 CAP 3 Refills 01/05/25 Gabapentin (Gabapentin) 300 Mg Cap, 300 MG PO TID for 30 Days, MG 01/05/25 Pregabalin (Lyrica) 100 Mg Cap, 1 CAP PO BID, #60 CAP 2 Refills 01/05/25 Baclofen (Baclofen) 10 Mg Tab, 20 MG PO Q8HP PRN for PAIN SCALE 1 THRU 6 for 30 Days, MG 01/05/25 Losartan Potassium (Losartan Potassium) 100 Mg Tab, 1 TAB PO DAILY, #30 TAB 5 R efills 01/05/25 Baclofen (Baclofen) 20 Mg Tab, 1 TAB PO TID 01/05/25 Apixaban Base (ELIQUIS) 5 Mg Tab, 1 TAB PO BID 01/05/25 Amiodarone HCl (Amiodarone HCl) 200 Mg Tab, 1 TAB PO DAILY 12/02/24 Pantoprazole Sodium Sesquihydr (Pantoprazole Sodium) 40 Mg Tab, 1 TAB PO DAILY 12/01/24 Apixaban Base (ELIQUIS) 5 Mg Tab, 1 TAB PO BID 12/01/24 Tramadol Hcl (Tramadol Hcl) 50 Mg Tab, 1 TAB PO Q4HPRN PRN 12/01/24 Baclofen (Baclofen) 20 Mg Tab, 1 TAB PO TID 12/01/24 Losartan Potassium (Losartan Potassium) 100 Mg Tab, 1 TAB PO DAILY 12/01/24 Information Source: Patient, Emergency Med Personnel Mode of Arrival: EMS Severity: Moderate Inability to void: None Timing: Weeks Duration: Since onset Prehospital treatment: Other (Antibiotics) Onset: Spontaneous Symptoms: Frequency Past Medical History PAST MEDICAL HISTORY: AFIB, Arthritis, HTN Surgical History: Cholecystectomy, Tonsillectomy BIN PILER History: Denies all BIN PILER Hx Family History Family History: Reviewed,noncontributory to illness Social History Smoker: Non-Smoker Alcohol: Denies ETOH Use Drugs: Denies Drug Use Lives In: Home Constitutional: denies: chills, diaphoresis, fatigue, fever, malaise, sweats, weakness, others EENTM: denies: blurred vision, double vision, ear bleeding, ear discharge, ear drainage, ear pain, ear ringing, eye pain, eye redness, hearing loss, mouth pain, mouth swelling, nasal discharge, nose bleeding, nose congestion, nose pain, photophobia, tearing, throat pain, throat swelling, voice changes, others Respiratory: denies: cough, hemoptysis, orthopnea, SOB at rest, shortness of breath, SOB with excertion, stridor, wheezing, others Cardiovascular: denies: chest pain, dizzy spells, diaphoresis, Dyspnea on exertion, edema, irregular heart beat, left arm pain, lightheadedness, palpit ations, PND, syncope, others Gastrointestinal: denies: abdomen distended, abdominal pain, blood streaked b owels, constipated, diarrhea, dysphagia, difficulty swallowing, hematemesis, melena, nausea, poor appetite, poor fluid intake, rectal bleeding, rectal pain, vomiting, others Genitourinary: reports: frequency; denies: abnormal vagina bleeding, burning, dyspareunia, dysuria, flank pain, hematuria, incontinence, pain, , vagina discharge, urgency, others Neurological: denies: dizziness, fainting, headache, left sided numbness, left sided weakness, numbness, paresthesia, pre-existing deficit, right sided numbness, right sided weakness, seizure, speech problems, tingling, tremors, weakness, others Musculoskeletal: denies: back pain, gout, joint pain, joint swelling, muscle pain, muscle stiffness, neck pain, others Integumetry: denies: bruises, change in color, change in hair/nails, dryness, laceration, lesions, lumps, rash, wounds, others Allergic/Immunocompromised: denies: Difficulty Healing, Frequent Infections, Hives, Itching, others Hematologic/Lymphatic: denies: anemia, blood clots, easy bleeding, easy bruising, swollen glands, others Endocrine: denies: excessive hunger, excessive sweating, excessive thirst, excessive urination, flushing, intolerance to cold, intolerance to heat, unexplained weight gain, unexplained weight loss, others Psychiatric: denies: anxiety, bipolar disorder, depression, hopeless, panic disorder, schizophrenia, sleepless, suicidal, others All Other Systems: Reviewed and Negative Physical Exam General Appearance: Moderate Distress, Normal HEENT: Normal ENT Inspection, Pharynx Normal, TMs Normal Neck: Full Range of Motion, Non-Tender, Normal, Normal Inspection Respiratory: Chest Non-Tender, Lungs Clear, No Accessory Muscle Use, No Respiratory Distress, Normal Breath Sounds Cardiovascular: No Edema, No JVD, No Murmur, No Gallop, Normal Peripheral Pulses, Regular Rate/Rhythm Breast Exam: Deferred Gastrointestinal: No Organomegaly, Non Tender, No Pulsatile Mass, Normal Bowel Sounds, Soft Genitalia: Deferred Pelvic: Deferred Rectal: Deferred Extremities: No calf tenderness, Normal capillary refill, Normal range of motion, Non-tender, Pedal edema, Swelling Musculoskeletal : Apperance: Normal Neurologic: Alert, sweet goods machine operator II-XII nml as Tested, No Motor Deficits, Normal Affect, Normal Mood, No Sensory Deficits Cerebellar Function: NOT DONE Reflexes: NOT DONE Skin: Dry, Normal Color, Warm Peripheral Pulses: 3+ Radial (R), 3+ Radial (L) Lymphatic: No Adenopathy Was a procedure done? Was a procedure done?: No Differential Diagnosis Kidney stone (Female): Musculoskeletal pain, Urinary obstruction, Urolithiasis X-Ray, Labs, Meds, VS Patient alert. Came in because of urinary tract infection. Her primary care physician wanted her to have intravenous antibiotics pain Vitals stable. She is currently on Bactrim. Establish intravenous access. Was given fluids. She also has bilateral lower extremity mild redness swelling which is chronic. She is moving all extremities. Extremities are chronic. She does not have shortness a breath. She was given Rocephin. Continue monitoring. Time of 1ST Reevaluation: 17:07 Reevaluation 1ST: Unchanged Patient Education/Counseling: Diagnosis, Treatment Family Education/Counseling: No Family Present SEPSIS Sepsis Screen Physician Orders Urine Bacterial Culture (05/18/25 16:06) Complete Blood Count (05/18/25 16:06) Urinalysis (05/18/25 16:06) Basic Metabolic Panel (05/18/25 16:06) Departure 1 Departure Time of Disposition: 16:13 Impression: Primary Impression: Bilateral lower leg cellulitis Additional Impression: Urinary tract infection Qualified Codes: N30.00 - Acute cystitis without hematuria Disposition: ADMITTED INPATIENT Admit to: Med Surg Condition: Guarded Critical Care Note Critical Care Time?: No Stability Stability form required: No Heart Score Heart Score: Heart Score Response (Comments) Value History N/A 0 EKG N/A 0 Age N/A 0 Risk Factors N/A 0 Troponin N/A 0 Total 0 I personally scribed for CELESTE NAVARRO MD ([email or web address]) on 05/18/25 at 16:09. Electronically submitted by Jason Forrester ([email or web address]). CELESTE NAVARRO MD May 18, 2025 16:09
[2025-05-18 16:33] LABS: Hematocrit 37.4 % (36.0-46.0); Hemoglobin 12.6 g/dL (12.2-16.2); Mean Corpuscular Hemoglobin 31.6 pg (28.0-32.0); Mean Corpuscular Volume 93.6 fL (80.0-100.0); Nucleated Red Blood Cells % 0.0 %
[2025-05-18 16:47] LABS: Chloride 105 mmol/L (98-107); Potassium 5.0 mmol/L (3.5-5.1); Sodium 140 mmol/L (136-145)
[2025-05-18 16:49] LABS: Anion Gap 6 (5-15); Calcium 9.2 mg/dL (8.7-10.4)
[2025-05-18 16:51] LABS: Carbon Dioxide 29 mmol/L (20-31)
[2025-05-18 16:53] LABS: BUN/Creatinine Ratio 15.4 (10.0-20.0); Blood Urea Nitrogen 14 mg/dL (9-23); Glucose 92 mg/dL (74-106)
[2025-05-18] MEDS: CLINDAMYCIN 300MG IV 50 ML IV ONE (22:41)
--- NOTE | 2025-05-18 23:48 | DVHHPRES ---
History of Present Illness Resident Creating Document: BRADY DAMON RESIDENT History of Present Illness History of Present Illness (HPI): Elsa Kyle is an 80-year-old female with a complex medical history that includes peripheral neuropathy, hypertension, atrial fibrillation, osteoarthritis, and dyslipidemia. She presented with complaints of bilateral foot ulcers, which she reports are painless due to her underlying neuropathy. These ulcers are chronic in nature and have persisted since she underwent foot surgery four years ago following a fracture. Despite the lack of pain, the wounds have not healed, and she continues to receive daily wound care from a home nurse. A recent culture taken by her primary care physician revealed a yeast infection at the ulcer sites, prompting a recommendation for her to seek emergency care. Although she is wheelchair-bound, Ms. Kyle remains independent in managing her daily activities at home. She denies experiencing any fever or recent trauma to the affected areas Past Medical History (PMH): peripheral neuropathy, hypertension, atrial f ibrillation, osteoarthritis, and dyslipidemia. Past Surgical History (PSH): D&C in 2002 Family history (FH): History of malignant brain tumor in father EtOH: Patient denies alcohol use Smoking /Vaping: Denies smoking Recreational Drugs: Patient denies recreational drug use Residence: Lives alone Home Medications: diltiazem, furosemide, amiodarone, losartan, pantoprazole Allergies: Penicillin, Keflex PCP: Dr. Arce Specialist relevant to admission: Podiatry Review of Systems Review of Systems General: patient denies fever, fatigue, weaknes, sweating, any recent changes in appetite and weight HEENT: No headaches, visiual changes, hearing loss, tinnitus, nasal congestion and discharge, and sore throat. Cardiovascular: Denies chest pain, palpitations, dyspnea on exertion, orthopnea, or claudication. Respiratory: No cough, and wheezing. Gastrointestinal: Denies nausea, vomiting, dysphagia, odynophagia, heartburn, abdominal pain, flatulence, bloating, diarrhea, constipation, change in stool, or blood in stool. Genitourinary: No dysuria, hematuria, discharge, frequency, urgency, nocturia, incontinence, and urinary retention. Endocrine: No heat or cold intolerance, polydipsia, polyuria, and polyphagia. Neurological: No dizziness, extremity weakness and numbness, tremors, gait disturbance, seizures, and memory impairment. Psychiatric: Denies depression, anxiety,or insomnia. Musculoskeletal: Denies neck pain, stiffness and swelling, back pain, muscle weakness, joint pain, stiffness, swelling, or limited range of motion. Skin: No rashes, itching, skin lesion, changes in hair, nail, skin texture and b reast. Hematologic/Lymphatic: Denies easy bruising, bleeding tendencies, or lymph node enlargement. Allergies: Coded Allergies: Cephalexin (Verified Allergy, Severe, 12/01/24) Penicillins (Verified Allergy, Severe, 12/01/24) Exam Vital Signs Vital Signs Date Time Temp Pulse Resp B/P (MAP) Pulse Ox O2 Delivery O2 Flow Rate FiO2 05/18/25 19: 104 18 98 Room Air 05/18/25 19: 98.2 139/72 (94) 98.2 Exam General Appearance: Alert, Oriented X3, Cooperative, No acute distress HEENT: Atraumatic, PERRLA, EOMI, Mucous membrane moist/pink Respiratory: Clear to auscultation, Normal air movement Cardiovascular: Regular rate, Normal S1, Normal S2, No murmurs, no chest wall tenderness Abdominal: Normal bowel sounds, Soft, No tenderness, No hepatospenomegaly, No masses Extremities: ulcer in bilateral foot Skin: No rashes, No breakdown, No significant lesion Neuro: Normal gait, Normal speech, Strength at 5/5 X4 ext, Normal tone, Sensation intact, Cranial nerves 3-12 NL, Reflexes 2+ Psych/Mental Status: Mental status NL, Mood NL Patient has two decubitus ulcers in the sacral area, present on admission. Patient denies examination of the ulcer. Labs/Xrays Labs Test 05/18/25 16:17 Range/Units White Blood Count 7.9 4.4-10.8 10^3/uL Red Blood Count 4.00 4.0-5.20 10^6/uL Hemoglobin 12.6 12.2-16.2 g/dL Hematocrit 37.4 36.0-46.0 % Mean Corpuscular Volume 93.6 80.0-100.0 fL Mean Corpuscular Hemoglobin 31.6 28.0-32.0 pg Mean Corpuscular Hemoglobin Concent 33.7 32.0-36.0 g/dL Red Cell Distribution Width 14.7 H 11.8-14.3 % Platelet Count 440 140-450 10^3/uL Mean Platelet Volume 7.4 6.9-10.8 fL Neutrophils (%) (Auto) 69.8 37.0-80.0 % Lymphocytes (%) (Auto) 19.5 10.0-50.0 % Monocytes (%) (Auto) 7.0 0.0-12.0 % Eosinophils (%) (Auto) 2.8 0.0-7.0 % Basophils (%) (Auto) 0.9 0.0-2.0 % Neutrophils # (Auto) 5.5 1.6-8.6 10 ^3/uL Lymphocytes # (Auto) 1.5 0.4-5.4 10 ^3/uL Monocytes # (Auto) 0.6 0-1.3 10 ^3/uL Eosinophils # (Auto) 0.2 0-0.8 10 ^3/uL Basophils # (Auto) 0.1 0-0.2 10 ^3/uL Nucleated Red Blood Cells 0.0 % Sodium Level 140 136-145 mmol/L Potassium Level 5.0 3.5-5.1 mmol/L Chloride Level 105 98-107 mmol/L Carbon Dioxide Level 29 20-31 mmol/L Anion Gap 6 5-15 Blood Urea Nitrogen 14 9-23 mg/dL Creatinine 0.91 0.550-1.02 mg/dL Glomerular Filtration Rate Calc 63 >90 mL/min BUN/Creatinine Ratio 15.4 10.0-20.0 Serum Glucose 92 74-106 mg/dL Calcium Level 9.2 8.7-10.4 mg/dL SEPSIS Sepsis Screen Date sepsis recognized/suspect: May 18, 2025 Time Sepsis recognized/suspect: 1554 Recent Procedure: No On Antibiotic Therapy: Yes Respiratory Rate >20: No Heart Rate >90: Yes Temp<36 C (96.8 F) or >38.3 C: No SBP <90 or MAP <65 mmHG: No New Acute Mental Status Change: No Is the patient on CPAP, BIPAP,: No Physician Orders Urine Bacterial Culture (05/18/25 16:06) Urinalysis (05/18/25 16:06) Admit (05/18/25 22:26) Oxygen By Nasal Cannula (05/18/25 22:26) Stat Ekg For Chest Pain (05/18/25 22:26) Notify Of Changes From Base (05/18/25 22:26) Vp Communications For 24 Hours (05/18/25 22:26) Emergency Dysrhythmia Protocol (05/18/25 22:26) Rhythm Strips Once Every Shift (05/18/25 22:26) Vital Signs Date Time Temp Pulse Resp B/P (MAP) Pulse Ox O2 Delivery O2 Flow Rate FiO2 05/18/25 19:25 104 18 98 Room Air 05/18/25 19:25 98.2 104 18 139/72 (94) 98 98.2 05/18/25 15:55 98.3 110 18 140/80 97 98.3 Laboratory Tests Test 05/18/25 16:17 White Blood Count 7.9 10^3/uL (4.4-10.8) Medications Medications Dose Ordered Sig/Priscila Route Start Time Stop Time Status Last Admin Dose Admin Ceftriaxone Sodium 50 ml @ 100 mls/hr ONCE ONCE IV 05/18/25 16:15 05/18/25 16:44 DC 05/18/25 19:45 100 MLS/HR Clindamycin Phosphate 50 ml @ 50 mls/hr ONCE ONCE IV 05/18/25 16:15 05/18/25 17:14 DC 05/18/25 22:41 50 MLS/HR Assessment/Plan Assessment/Plan Assessment and plan # Likely fungal cellulitis with wound ulcer - IV linezolid, levofloxacin, fluconazole - Levofloxacin and fluconazole stopped due to QT prolongation - Wound culture - Wound consult - Podiatry consult - CT noncontrast foot - History of Pseudomonas and Enterococcus wound cellulitis # Sacral decubitus ulcer, present on admission - Patient denied examination of the area # Atrial fibrillation, controlled rate - Lovenox # peripheral neuropathy - Continue home medications # Essential hypertension - Continue losartan # GERD - Continue pantoprazole # Dyslipidemia - Follow lipid levels # Osteoarthritis - Physical therapy as outpatient on discharge PUD prophylaxis: Pantoprazole DVT prophylaxis: Levonox 40mg Barriers to discharge: Medical diagnosis and management in progress. Patient lives with self. Needs wheelchair support for ADL. PCP: Dr. Arce Specialist Relevent To Admission: Podiatry Case discussed with Dr. Nevarez. Code Status: Full Code. Complex patient care discussion needed. Spend total 35 minutes for bedside assessment, case discussion and management. Plan discussed with: Patient Date of Service: May 18, 2025 Billing Provider: AYLA NEVAREZ MD Common Visit Codes: 19001-QVASUYW INP/OBS CARE (HIGH) Secondary Visit Codes: 58270-IYQLRCSH CARE PLAN 30 MINUTES BRADY DAMON RESIDENT May 18, 2025 23:48 AMANDA RASHEED RESIDENT May 19, 2025 09:07
[2025-05-19] VITALS (8 sets, daily range): BP systolic 114–150; BP diastolic 59–82; PULSE 88–99; RESP 17–18; TEMP 97.8–98.5; O2SAT 96–100
[2025-05-19] MEDS: FLUCONAZOLE 200MG/100ML 100 ML IV ONE (03:37)
[2025-05-19] MEDS: ENOXAPARIN SOD 100 MG/1 ML SYRINGE SC SCH (03:37)
[2025-05-19] MEDS: ACETAMINOPHEN 325 MG TAB PO PRN (04:48)
--- NOTE | 2025-05-19 05:14 | ECG ---
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
[2025-05-19] MEDS: PANTOPRAZOLE 40 MG TAB PO SCH (06:29)
[2025-05-19 06:41] LABS: Hematocrit 38.6 % (36.0-46.0); Hemoglobin 12.7 g/dL (12.2-16.2); Mean Corpuscular Hemoglobin 31.7 pg (28.0-32.0); Mean Corpuscular Volume 96.2 fL (80.0-100.0); Nucleated Red Blood Cells % 0.1 %
[2025-05-19 06:46] LABS: Alanine Aminotransferase 13 U/L (7-40); Albumin 3.3 g/dL (3.2-4.8); Alkaline Phosphatase 95 U/L (46-116); Anion Gap 9 (5-15); BUN/Creatinine Ratio 8.9 (10.0-20.0); Calcium 9.0 mg/dL (8.7-10.4); Carbon Dioxide 23 mmol/L (20-31); Chloride 107 mmol/L (98-107); Glucose 87 mg/dL (74-106); Potassium 4.6 mmol/L (3.5-5.1); Sodium 139 mmol/L (136-145); Total Protein 6.2 g/dL (5.7-8.2)
[2025-05-19 06:47] LABS: Bilirubin, Total 0.3 mg/dL (0.2-1.0)
[2025-05-19 07:00] LABS: Blood Urea Nitrogen 8 mg/dL (9-23)
--- NOTE | 2025-05-19 08:21 | DVH ---
CLINICAL INDICATION: Foot ulcer to rule out osteomyelitus TECHNIQUE: Noncontrast CT of the left extremity was performed. Sagittal and coronal reformatted image s are provided. COMPARISON: CT of the lower extremity dated 12/02/2024. CT Dose: CTDI volume is 7.75 mGy. Dose-length product is 230.9 mGy*cm FINDINGS: No fracture or dislocation in the left lower extremity. There is postsurgical change in the distal ti james with a sideplate and several screws as well as hindfoot arthrodesis with several screws. There i s acquired pes planovalgus deformity. Heterogeneous bone mineralization may be related to disuse oste openia. There is abnormal sclerosis in the calcaneus with mixed lucencies which may represent sequela e of a previous fracture, alternatively may be related to infection. There is secondary osteoarthriti s of the hindfoot and midfoot joints. Hammertoe deformities are noted. There subcutaneous edema diff usely throughout the left foot and ankle. The partially imaged right foot demonstrates soft tissue swelling as well. No acute osseous abnormali ty in the partially included right foot. IMPRESSION: 1. No acute fracture or dislocation. 2. Postsurgical changes in the left distal tibia and hindfoot. 3. Abnormal sclerosis in the calcaneus with mixed lucencies which may represent sequelae of a previou s fracture, alternatively may be related to infection. MRI may be obtained for further evaluation. 4. Diffuse subcutaneous edema in the left foot and ankle. All CT scans at this medical facility are performed using dose modulation techniques as appropriate t o a performed exam including the following: Automated exposure control was utilized; adjustment of th e MA and/or KV according to patient size; and use of iterative reconstruction technique.
[2025-05-19] MEDS ORDERED: LINEZOLID 600MG/300ML 300 ML IV SCH (10:00)
[2025-05-19] MEDS: LOSARTAN POTASSIUM 50 MG TAB PO SCH (10:20)
[2025-05-19] MEDS: FUROSEMIDE 20 MG TAB PO SCH (10:20)
[2025-05-19] MEDS: AMIODARONE HCL 200 MG TAB PO SCH (10:22)
[2025-05-19 10:43] LABS: Urine Amorphous Crystal FEW /hpf (None Seen); Urine Protein, UAD Negative (Negative)
[2025-05-19 11:13] LABS: Opiate Scree,Urine Neg (NEGATIVE); Phencyclidine Screen, Urine Neg (NEGATIVE)
[2025-05-19 11:24] LABS: Amphetamine Screen, Urine Neg (NEGATIVE); Barbiturate Scree,Urine Neg (NEGATIVE); Benzodiazephine Screen, Urine Neg (NEGATIVE); Cannabinoid Screen, Urine Neg (NEGATIVE); Cocaine Screen, Urine Neg (NEGATIVE)
--- NOTE | 2025-05-19 12:26 | DVHPNRES ---
Progress Note Date Seen: May 19, 2025 Resident Creating Document: TAURUS BRYANT RESIDENT Medical Necessity Reason Pt with a Central, PICC or Fol: No Subjective Review of Systems HPI-patient is an 80-year-old female with a complex medical history that includes peripheral neuropathy, hypertension, atrial fibrillation, osteoarthritis, and dyslipidemia. She presented with complaints of bilateral foot ulcers, which she reports are painless due to her underlying neuropathy. These ulcers are chronic in nature and have persisted since she underwent foot surgery four years ago following a fracture. Despite the lack of pain, the wounds have not healed, and she continues to receive daily wound care from a home nurse. A recent culture taken by her primary care physician revealed a yeast infection at the ulcer sites, prompting a recommendation for her to seek emergency care. Although she is wheelchair-bound, Ms. Kyle remains independent in managing her daily activities at home. She denies experiencing any fever or recent trauma to the affected areas. Urinalysis revealed leukocyte esterase 1+, WBC 3, bacteria few. UDS negative Past Medical History (PMH): peripheral neuropathy, hypertension, atrial fibrillation, osteoarthritis, and dyslipidemia. Past Surgical History (PSH): D&C in 2002 Family history (FH): History of malignant brain tumor in father EtOH: Patient denies alcohol use Smoking /Vaping: Denies smoking Recreational Drugs: Patient denies recreational drug use Residence: Lives alone Home Medications: diltiazem, furosemide, amiodarone, losartan, pantoprazole Allergies: Penicillin, Keflex PCP: Dr. Arce Patient was seen today at bedside, labs and chart reviewed. Pending wound telecom sales consultant podiatry consult. Pending wound culture and urine culture Objective vital signs Vital Sign Date Time Temp Pulse Resp B/P (MAP) Pulse Ox O2 Delivery O2 Flow Rate FiO2 05/19/25 10:22 98.4 99 18 120/73 (89) 96 98.4 05/19/25 08:08 Room Air* 0 21 medications Current Medications Medications Dose Ordered Sig/Priscila Route Start Time Stop Time Status Last Admin Dose Admin Enoxaparin Sodium 90 mg Q12HR@0200,1400 SC 05/19/25 02:00 05/19/25 03:37 90 MG Diltiazem HCl 360 mg DAILY PO 05/19/25 10:00 Furosemide 20 mg DAILY PO 05/19/25 10:00 Amiodarone HCl 200 mg DAILY PO 05/19/25 10:00 05/19/25 10:22 200 MG Losartan Potassium 100 mg DAILY PO 05/19/25 10:00 Pantoprazole Sodium 40 mg DAILY@0600 PO 05/19/25 06:00 05/19/25 06:29 40 MG Tramadol HCl 50 mg Q6HP PRN PO 05/19/25 04:30 05/19/25 11:23 50 MG Acetaminophen 650 mg [id number] PRN PO 05/19/25 04:30 05/19/25 04:48 650 MG Ceftriaxone Sodium 50 ml @ 100 mls/hr DAILY@09 IV 05/20/25 09:00 UNV Examination General examination- awake, alert, oriented HEENT- PEERLA, no acute nasal discharge Cardiovascular- S1-S2 audible, rate and rhythm regular, no murmur Respiratory- CTAB, no wheeze or rhonchi Gastrointestinal-nontender, bowel sound+. Nondistended Musculoskeletal-no acute joint swelling or tenderness or redness Lower extremity- bilateral leg and foot redness, erythema, edematous, ulcer on the middle of the left foot and right great toe and right side of the right foot Neurological- cranial nerves intact, no acute dysarthria or dysphagia Psychiatry- denies depression or SI or HI Skin- no acute rash or purpura laboratory and microbiology Laboratory Tests 05/19/25 05:23 Test 05/19/25 05:23 Range/Units Serum Glucose 87 74-106 mg/dL Problem List/Assessment/Plan Problem List/Assessment/Plan Assessment and plan Bilateral lower extremity cellulitis # bilateral lower extremity wound -CT of the left foot revealed-Postsurgical changes in the left distal tibia and hindfoot. Abnormal sclerosis in the calcaneus with mixed lucencies which may represent sequelae of a previous fracture, alternatively may be related to infection. Diffuse subcutaneous edema in the left foot and ankle. -on ceftriaxone 1 g IV daily -pending wound culture -Pending podiatry consult and wound consult # hypertension # hyperlipidemia -losartan 100 mg p.o. daily -atorvastatin 20 mg p.o. daily # atrial fibrillation -continue amiodarone 200 mg p.o. daily -continue Lovenox 90 mg subcutaneously b.i.d. # peripheral neuropathy -continue pregabalin 100 mg p.o. b.i.d. # rheumatoid arthritis Continue current management # vitamin-D deficiency -ordered supplement vitamin Goals of care, Code status full code ; discussed with >15 minutes PUD prophylaxis: Pantoprazole DVT prophylaxis: Lovenox Plan discussed with Dr. Argueta , nursing staff, Total time spent on patient evaluation, chart review, assessment and plan, discussion discussion >35 minutes Plan discussed with: Patient, Other My Orders My Orders Orders - TAURUS BRYANT Procedure Category Date Status Time Folate (Folic Acid) LAB 05/19/25 In Process 07:31 Vitamin D, 25-Hydroxy LAB 05/19/25 In Process 07: Vitamin B12 LAB 05/19/25 In Process 07:31 Ceftriaxone 1gm/50ml PHA 05/20/25 Logged (Rocephin) 09:00 TAURUS BRYANT May 19, 2025 12:26
--- NOTE | 2025-05-19 13:30 | ECG ---
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
[2025-05-19] MEDS ORDERED: GABAPENTIN 300 MG CAP PO SCH (14:00)
[2025-05-19] MEDS: ERGOCALCIFEROL 50,000 UNIT(1.25MG) CAP PO SCH (19:06)
[2025-05-19] MEDS: PREGABALIN 25 MG CAP PO SCH (21:25)
[2025-05-19] MEDS: PREGABALIN CAPSULE 75 MG CAP PO SCH (21:25)
[2025-05-19] MEDS ORDERED: FLUCONAZOLE 200MG/100ML 100 ML IV SCH (22:00)
[2025-05-20 01:00] VITALS: BP 124/73; PULSE 87; RESP 17; TEMP 98; O2SAT 97
[2025-05-20 05:00] VITALS: BP 121/66; PULSE 91; RESP 17; TEMP 97.7; O2SAT 96
[2025-05-20 09:00] VITALS: BP 123/78; PULSE 85; RESP 18; TEMP 97.9; O2SAT 97
--- NOTE | 2025-05-20 11:59 | DVHCONRES ---
Date Seen: May 20, 2025 Reason for Consultation Bilateral foot wounds History of Present Illness Elsa Kyle is an 80-year-old female with a complex medical history that includes peripheral neuropathy, hypertension, atrial fibrillation, osteoarthritis, and dyslipidemia. She presented with complaints of bilateral f oot ulcers, which she reports are painless due to her underlying neuropathy. These ulcers are chronic in nature and have persisted since she underwent foot surgery four years ago following a fracture. Despite the lack of pain, the wounds have not healed, and she continues to receive daily wound care from a home nurse. A recent culture taken by her primary care physician revealed a yeast infection at the ulcer sites, prompting a recommendation for her to seek emergency care. Although she is wheelchair-bound, Ms. Kyle remains independent in managing her daily activities at home. She denies experiencing any fever or recent trauma to the affected areas Past Medical History See H&P Past Surgical History See H&P Family History: Cardiovascular disease G8 MOTHER, Onset:Unknown Diabetes mellitus G8 MOTHER, Onset:Unknown G8 MOTHER Diabetes mellitus G8 MOTHER, Onset:Unknown G8 MOTHER FH: brain tumor G8 FATHER, Onset:Unknown G8 FATHER FH: brain tumor G8 FATHER, Onset:Unknown G8 FATHER FH: neuropathy G8 MOTHER Allergies: Coded Allergies: Cephalexin (Verified Allergy, Severe, 12/01/24) Penicillins (Verified Allergy, Severe, 12/01/24) Home Meds Active Scripts Levofloxacin Hemihydrate (LEVAQUIN 500 MG) 500 Mg Tab, 500 MG PO DAILY for 10 Days, #10 TAB Prov:CHRIS LANE MD 02/10/25 Doxycycline Hyclate (DOXYCYCLINE HYCLATE) 100 Mg Tab, 100 MG PO BID for 14 Days, #28 TAB Prov:CHRIS LANE MD 02/10/25 Clindamycin Hcl (CLEOCIN) 150 Mg Cap, 1 CAP PO TID, #30 CAP Prov:VENESSA VINCENT MD 01/08/25 Acetaminophen (Acetaminophen) 325 Mg Tab, 325 MG PO Q4HP PRN for 14 Days, #70 TAB Prov:HERNAN BARRERA RESIDENT 01/07/25 Metoclopramide Hcl (Reglan) 5 Mg Tab, 5 MG PO BID for 5 Days, #10 TAB Prov:RUCHI KRAUSE RESIDENT 12/07/24 Acetaminophen (Tylenol) 325 Mg Tb, 325 MG PO TID for 10 Days, #30 TAB Prov:RUCHI KRAUSE RESIDENT 12/07/24 Linezolid (Zyvox) 600 Mg Tab, 600 MG PO BID for 10 Days, #20 TAB Prov:RUCHI KRAUSE RESIDENT 12/07/24 Levofloxacin Hemihydrate (LEVAQUIN 500 MG) 500 Mg Tab, 500 MG PO DAILY for 10 Days, #10 TAB Prov:RUCHI KRAUSE RESIDENT 12/07/24 Reported Medications Duloxetine Hcl (Cymbalta) 60 Mg Cap, 1 CAP PO TID, #90 CAP 3 Refills 01/05/25 Gabapentin (Gabapentin) 300 Mg Cap, 300 MG PO TID for 30 Days, MG 01/05/25 Pregabalin (Lyrica) 100 Mg Cap, 1 CAP PO BID, #60 CAP 2 Refills 01/05/25 Baclofen (Baclofen) 10 Mg Tab, 20 MG PO Q8HP PRN for PAIN SCALE 1 THRU 6 for 30 Days, MG 01/05/25 Losartan Potassium (Losartan Potassium) 100 Mg Tab, 1 TAB PO DAILY, #30 TAB 5 Refills 01/05/25 Baclofen (Baclofen) 20 Mg Tab, 1 TAB PO TID 01/05/25 Apixaban Base (ELIQUIS) 5 Mg Tab, 1 TAB PO BID 01/05/25 Amiodarone HCl (Amiodarone HCl) 200 Mg Tab, 1 TAB PO DAILY 12/02/24 Pantoprazole Sodium Sesquihydr (Pantoprazole Sodium) 40 Mg Tab, 1 TAB PO DAILY 12/01/24 Apixaban Base (ELIQUIS) 5 Mg Tab, 1 TAB PO BID 12/01/24 Tramadol Hcl (Tramadol Hcl) 50 Mg Tab, 1 TAB PO Q4HPRN PRN 12/01/24 Baclofen (Baclofen) 20 Mg Tab, 1 TAB PO TID 12/01/24 Losartan Potassium (Losartan Potassium) 100 Mg Tab, 1 TAB PO DAILY 12/01/24 Current Medications Current Medications Medications (Trade) Dose Ordered Sig/Priscila Route PRN Reason Start Time Stop Time Status Last Admin Levofloxacin/ Dextrose 100 ml @ 100 mls/hr DAILY@2100 IV 05/19/25 21:00 05/19/25 05:03 DC Fluconazole 100 ml @ 100 mls/hr DAILY@2200 IV 05/19/25 22:00 05/19/25 05:03 DC Ceftriaxone Sodium 50 ml @ 100 mls/hr DAILY@09 IV 05/20/25 09:00 05/20/25 09:30 Gabapentin (Neurontin Capsule) 300 mg TID PO 05/19/25 14:00 05/19/25 18:36 DC Duloxetine HCl (Cymbalta Capsule) 60 mg BID PO 05/19/25 22:00 05/20/25 09:32 Pregabalin (Lyrica Capsule) 25 mg BID PO 05/19/25 22:00 05/20/25 10:52 Ergocalciferol (Vitamin D 50,000 Unit) 50,000 unit Q7D PO 05/19/25 17:30 05/19/25 19:06 Pregabalin (Lyrica Capsule) 75 mg BID PO 05/19/25 22:00 05/20/25 10:53 Vital Signs Vital Signs Date Time Temp Pulse Resp B/P (MAP) Pulse Ox O2 Delivery O2 Flow Rate FiO2 05/20/25 09:35 123/78 05/20/25 09:31 85 05/20/25 09:00 97.9 18 97 97.9 05/20/25 08:00 Room Air* 0 21 Physical Exam Dermatological: Skin is dry with mild erythema and some maceration around the wound site No gross deformities noted Mild non-pitting edema present bilaterally Right hallux and heel wound with left medial foot wound all appeared to be mixed fibrotic granular with no surrounding erythema or drainage Vascular: Dorsalis pedis and posterior tibial pulses are 1+ bilaterally Capillary refill is under 2 seconds Skin temperature is warm bilaterally Neurologic: Protective sensation is absent on the plantar forefoot bilaterally Monofilament testing reveals decreased sensation in multiple plantar sites Musculoskeletal: Range of motion at the ankle and MTP joints is within normal limits. Strength is 5/5 in all tested muscle groups. Gait is antalgic due to offloading of the affected limb. Labs/Diagnostic Data Labs Test 05/19/25 15:04 05/19/25 07:32 05/19/25 05:23 05/18/25 10:15 Range/Units Vitamin B12 Level 358 211-911 pg/mL Vitamin D 25-Hydroxy 25.0 L 30.0-100 ng/mL Urine Opiates Screen Neg NEGATIVE Urine Fentanyl Screen Neg NEGATIVE Urine Barbiturates Screen Neg NEGATIVE Urine Phencyclidine Screen Neg NEGATIVE Urine Amphetamines Screen Neg NEGATIVE Urine Benzodiazepines Screen Neg NEGATIVE Urine Cocaine Screen Neg NEGATIVE Urine Cannabinoids Screen Neg NEGATIVE White Blood Count 6.8 4.4-10.8 10^3/uL Red Blood Count 4.01 4.0-5.20 10^6/uL Hemoglobin 12.7 12.2-16.2 g/dL Hematocrit 38.6 36.0-46.0 % Mean Corpuscular Volume 96.2 80.0-100.0 fL Mean Corpuscular Hemoglobin 31.7 28.0-32.0 pg Mean Corpuscular Hemoglobin Concent 32.9 32.0-36.0 g/dL Red Cell Distribution Width 14.9 H 11.8-14.3 % Platelet Count 383 140-450 10^3/uL Mean Platelet Volume 7.3 6.9-10.8 fL Neutrophils (%) (Auto) 59.1 37.0-80.0 % Lymphocytes (%) (Auto) 27.5 10.0-50.0 % Monocytes (%) (Auto) 7.9 0.0-12.0 % Eosinophils (%) (Auto) 4.7 0.0-7.0 % Basophils (%) (Auto) 0.8 0.0-2.0 % Neutrophils # (Auto) 4.0 1.6-8.6 10 ^3/uL Lymphocytes # (Auto) 1.9 0.4-5.4 10 ^3/uL Monocytes # (Auto) 0.5 0-1.3 10 ^3/uL Eosinophils # (Auto) 0.3 0-0.8 10 ^3/uL Basophils # (Auto) 0.1 0-0.2 10 ^3/uL Nucleated Red Blood Cells 0.1 % Sodium Level 139 136-145 mmol/L Potassium Level 4.6 3.5-5.1 mmol/L Chloride Level 107 98-107 mmol/L Carbon Dioxide Level 23 20-31 mmol/L Anion Gap 9 5-15 Blood Urea Nitrogen 8 L 9-23 mg/dL Creatinine 0.90 0.550-1.02 mg/dL Glomerular Filtration Rate Calc 64 >90 mL/min BUN/Creatinine Ratio 8.9 L 10.0-20.0 Serum Glucose 87 74-106 mg/dL Hemoglobin A1c 5.0 <5.7 % A1C Calcium Level 9.0 8.7-10.4 mg/dL Magnesium Level 2.0 1.6-2.6 mg/dL Total Bilirubin 0.3 0.2-1.0 mg/dL Aspartate Amino Transferase (AST) 23 13-40 U/L Alanine Aminotransferase (ALT) 13 7-40 U/L Alkaline Phosphatase 95 46-116 U/L Total Protein 6.2 5.7-8.2 g/dL Albumin 3.3 3.2-4.8 g/dL Folic Acid 9.99 >5.38 ng/mL Thyroid Stimulating Hormone (TSH) 2.01 0.55-4.78 uIU/mL Urine Color Colorless Yellow Urine Clarity Turbid H Clear Urine pH 7.5 5.0-9.0 Urine Specific [place] 1.015 1.001-1.035 Urine Protein Negative Negative Urine Ketones Negative Negative Urine Blood Negative Negative /uL Urine Nitrite Negative Negative Urine Bilirubin Negative Negative Urine Urobilinogen Normal Negative mg/dL Urine Leukocyte Esterase 1+ Negative /uL Urine RBC 2 0 - 4 /hpf Urine Microscopic WBC 3 0-5 /HPF Urine Squamous Epithelial Cells Few <5 /hpf Urine Amorphous Crystals Few None Seen /hpf Urine Bacteria Few H None Seen /hpf Urine Glucose Normal Normal mg/dL Microbiology Date/Time Source Procedure Growth Status 05/19/25 12:40 Foot Gram Stain Pending Resulted 05/19/25 12:40 Foot Wound Culture - Preliminary Resulted Problems(with codes): (1) Pedal edema (2) Bilateral lower leg cellulitis (3) Cellulitis (4) Infected decubitus ulcer (5) Generalized weakness (6) Leukocytosis, unspecified (7) Urinary tract infection (8) Bilateral lower leg cellulitis Plan/Recommendation ASSESSMENT: Patient is a 80 year old seen on the floor for a worsening ulcer PLAN: - The patients chart was reviewed, clinical findings were discussed with the patient, the etiologies of the conditions were discussed in detail, and a treatment plan was agreed to at this time, with both oral and written instructions provided. - reviewed advanced imaging - discussed with the patient that the wounds the srivastava to be healing appropriately - with surgical intervention recommended at this point - dress with Medihoney - follow up with her wound care All questions were answered and concerns addressed to the patient's satisfaction. The patient was given the phone number to the clinic and was told how to make contact with the clinic should any concerns or questions arise. Patient understands that if any questions or concerns arise prior to the next appointment, we should be contacted immediately. FOLLOW-UP: Continue to follow while inpatient Plan discussed with: Patient Visit Coding Podiatry Date of Service if different f: May 20, 2025 Billing Provider: JEFRY HIRSCH DPM Podiatry Common Visit Codes: CONSULT ONLY Podiatry Consult Codes: 06275-EQ/OBS [id number] NEW/EST HI 80 JEFRY HIRSCH DPM May 20, 2025 11:59
[2025-05-20 13:00] VITALS: BP 112/69; PULSE 88; RESP 18; TEMP 98; O2SAT 97
[2025-05-20] MEDS ORDERED: CEPH250C PO (14:14)
[2025-05-20 15:56] VITALS: BP 123/78; PULSE 85; TEMP 36.7
--- NOTE | 2025-05-20 16:01 | DVHPNRES ---
Progress Note Date Seen: May 20, 2025 Resident Creating Document: TAURUS BRYANT RESIDENT Medical Necessity Reason Pt with a Central, PICC or Fol: No Subjective Review of Systems HPI-patient is an 80-year-old female with a complex medical history that includes peripheral neuropathy, hypertension, atrial fibrillation, osteoarthritis, and dyslipidemia. She presented with complaints of bilateral foot ulcers, which she reports are painless due to her underlying neuropathy. These ulcers are chronic in nature and have persisted since she underwent foot surgery four years ago following a fracture. Despite the lack of pain, the wounds have not healed, and she continues to receive daily wound care from a home nurse. A recent culture taken by her primary care physician revealed a yeast infection at the ulcer sites, prompting a recommendation for her to seek emergency care. Although she is wheelchair-bound, Ms. Kyle remains independent in managing her daily activities at home. She denies experiencing any fever or recent trauma to the affected areas. Urinalysis revealed leukocyte esterase 1+, WBC 3, bacteria few. UDS negative Hospital course Assessment and plan Bilateral lower extremity cellulitis # bilateral lower extremity wound # hypertension # hyperlipidemia # atrial fibrillation # peripheral neuropathy # rheumatoid arthritis # vitamin-D deficiency Plan Keflex 500 mg p.o. b.i.d. Objective vital signs Vital Sign Date Time Temp Pulse Resp B/P (MAP) Pulse Ox O2 Delivery O2 Flow Rate FiO2 05/20/25 13:00 98.0 88 18 112/69 (83) 97 98.0 05/20/25 08:00 Room Air* 0 21 Total Intake and Output 05/19/25 05/19/25 05/20/25 15:00 23:00 07:00 Intake Total 400 ml 500 ml Balance 400 ml 500 ml medications Current Medications Medications Dose Ordered Sig/Priscila Route Start Time Stop Time Status Last Admin Dose Admin Enoxaparin Sodium 90 mg Q12HR@0200,1400 SC 05/19/25 02:00 05/20/25 01:45 90 MG Diltiazem HCl 360 mg DAILY PO 05/19/25 10:00 05/20/25 09:31 360 MG Furosemide 20 mg DAILY PO 05/19/25 10:00 05/20/25 09:32 20 MG Amiodarone HCl 200 mg DAILY PO 05/19/25 10:00 05/20/25 09:34 200 MG Losartan Potassium 100 mg DAILY PO 05/19/25 10:00 05/20/25 09:35 100 MG Pantoprazole Sodium 40 mg DAILY@0600 PO 05/19/25 06:00 05/20/25 06:56 40 MG Tramadol HCl 50 mg Q6HP PRN PO 05/19/25 04:30 05/20/25 00:15 50 MG Acetaminophen 650 mg [id number] PRN PO 05/19/25 04:30 05/20/25 01:46 650 MG Ceftriaxone Sodium 50 ml @ 100 mls/hr DAILY@09 IV 05/20/25 09:00 05/20/25 09:30 100 MLS/HR Duloxetine HCl 60 mg BID PO 05/19/25 22:00 05/20/25 09:32 60 MG Pregabalin 25 mg BID PO 05/19/25 22:00 05/20/25 10:52 25 MG Ergocalciferol 50,000 unit Q7D PO 05/19/25 17:30 05/19/25 19:06 50,000 UNIT Pregabalin 75 mg BID PO 05/19/25 22:00 05/20/25 10:53 75 MG laboratory and microbiology Laboratory Tests 05/19/25 05:23 Test 05/19/25 05:23 Range/Units Serum Glucose 87 74-106 mg/dL Microbiology Date/Time Source Procedure Growth Status 05/19/25 12:40 Foot Gram Stain Pending Resulted 05/19/25 12:40 Foot Wound Culture - Preliminary Resulted 05/18/25 10:15 Voided Urine Urine Culture - Preliminary Resulted Problem List/Assessment/Plan Problem List/Assessment/Plan Assessment and plan Bilateral lower extremity cellulitis # bilateral lower extremity wound -CT of the left foot revealed-Postsurgical changes in the left distal tibia and hindfoot. Abnormal sclerosis in the calcaneus with mixed lucencies which may represent sequelae of a previous fracture, alternatively may be related to infection. Diffuse subcutaneous edema in the left foot and ankle. -on ceftriaxone 1 g IV daily -pending wound culture -Pending podiatry consult and wound consult # hypertension # hyperlipidemia -losartan 100 mg p.o. daily -atorvastatin 20 mg p.o. daily # atrial fibrillation -continue amiodarone 200 mg p.o. daily -continue Lovenox 90 mg subcutaneously b.i.d. # peripheral neuropathy -continue pregabalin 100 mg p.o. b.i.d. # rheumatoid arthritis Continue current management # vitamin-D deficiency -ordered supplement vitamin Goals of care, Code status full code ; discussed with >15 minutes PUD prophylaxis: Pantoprazole DVT prophylaxis: Lovenox Plan discussed with Dr. Argueta , nursing staff, Total time spent on patient evaluation, chart review, assessment and plan, discussion discussion >35 minutes My Orders My Orders Orders - TAURUS BRYANT Procedure Category Date Status Time Ergocalciferol PHA 05/19/25 In Process (Vitamin D 50,000 17:30 Pregabalin Capsule PHA 05/19/25 In Process (Lyrica Capsule) 22:00 Discharge DISCHARGE 05/20/25 Transmitted 12:29 * [facility] CONS 05/20/25 Transmitted Consult Dietary Evaluation Review Comments: 1) Dioni 1 pk BID 2) Continue current POC Expected Outcomes/Goals: Wound to improve Fu 3-5 days TAURUS BRYANT May 20, 2025 16:01
[2025-05-20] MEDS ORDERED: DOXY100C79 PO (16:03)
--- NOTE | 2025-05-20 16:09 | DVHDSRES ---
Discharge Summary Date of Admission Resident Creating Document: TAURUS BRYANT RESIDENT May 18, 2025 at 22:26 Date of Discharge: May 20, 2025 Admitting Diagnosis Bilateral lower extremity cellulitis with bilateral foot wound Labs/Diagnostic Data: Laboratory Results Test 05/19/25 15:04 05/19/25 07:32 05/19/25 05:23 05/18/25 10:15 Vitamin B12 Level 358 pg/mL (211-911) Vitamin D 25-Hydroxy 25.0 ng/mL (30.0-100) Urine Opiates Screen Neg (NEGATIVE) Urine Fentanyl Screen Neg (NEGATIVE) Urine Barbiturates Screen Neg (NEGATIVE) Urine Phencyclidine Screen Neg (NEGATIVE) Urine Amphetamines Screen Neg (NEGATIVE) Urine Benzodiazepines Screen Neg (NEGATIVE) Urine Cocaine Screen Neg (NEGATIVE) Urine Cannabinoids Screen Neg (NEGATIVE) White Blood Count 6.8 10^3/uL (4.4-10.8) Red Blood Count 4.01 10^6/uL (4.0-5.20) Hemoglobin 12.7 g/dL (12.2-16.2) Hematocrit 38.6 % (36.0-46.0) Mean Corpuscular Volume 96.2 fL (80.0-100.0) Mean Corpuscular Hemoglobin 31.7 pg (28.0-32.0) Mean Corpuscular Hemoglobin Concent 32.9 g/dL (32.0-36.0) Red Cell Distribution Width 14.9 % (11.8-14.3) Platelet Count 383 10^3/uL (140-450) Mean Platelet Volume 7.3 fL (6.9-10.8) Neutrophils (%) (Auto) 59.1 % (37.0-80.0) Lymphocytes (%) (Auto) 27.5 % (10.0-50.0) Monocytes (%) (Auto) 7.9 % (0.0-12.0) Eosinophils (%) (Auto) 4.7 % (0.0-7.0) Basophils (%) (Auto) 0.8 % (0.0-2.0) Neutrophils # (Auto) 4.0 10 ^3/uL (1.6-8.6) Lymphocytes # (Auto) 1.9 10 ^3/uL (0.4-5.4) Monocytes # (Auto) 0.5 10 ^3/uL (0-1.3) Eosinophils # (Auto) 0.3 10 ^3/uL (0-0.8) Basophils # (Auto) 0.1 10 ^3/uL (0-0.2) Nucleated Red Blood Cells 0.1 % Sodium Level 139 mmol/L (136-145) Potassium Level 4.6 mmol/L (3.5-5.1) Chloride Level 107 mmol/L (98-107) Carbon Dioxide Level 23 mmol/L (20-31) Anion Gap 9 (5-15) Blood Urea Nitrogen 8 mg/dL (9-23) Creatinine 0.90 mg/dL (0.550-1.02) Glomerular Filtration Rate Calc 64 mL/min (>90) BUN/Creatinine Ratio 8.9 (10.0-20.0) Serum Glucose 87 mg/dL (74-106) Hemoglobin A1c 5.0 % A1C (<5.7) Calcium Level 9.0 mg/dL (8.7-10.4) Magnesium Level 2.0 mg/dL (1.6-2.6) Total Bilirubin 0.3 mg/dL (0.2-1.0) Aspartate Amino Transferase (AST) 23 U/L (13-40) Alanine Aminotransferase (ALT) 13 U/L (7-40) Alkaline Phosphatase 95 U/L (46-116) Total Protein 6.2 g/dL (5.7-8.2) Albumin 3.3 g/dL (3.2-4.8) Folic Acid 9.99 ng/mL (>5.38) Thyroid Stimulating Hormone (TSH) 2.01 uIU/mL (0.55-4.78) Urine Color Colorless (Yellow) Urine Clarity Turbid (Clear) Urine pH 7.5 (5.0-9.0) Urine Specific [place] 1.015 (1.001-1.035) Urine Protein Negative (Negative) Urine Ketones Negative (Negative) Urine Blood Negative /uL (Negative) Urine Nitrite Negative (Negative) Urine Bilirubin Negative (Negative) Urine Urobilinogen Normal mg/dL (Negative) Urine Leukocyte Esterase 1+ /uL (Negative) Urine RBC 2 /hpf (0 - 4) Urine Microscopic WBC 3 /HPF (0-5) Urine Squamous Epithelial Cells Few /hpf (<5) Urine Amorphous Crystals Few /hpf (None Seen) Urine Bacteria Few /hpf (None Seen) Urine Glucose Normal mg/dL (Normal) Other Laboratory Tests 05/19/25 05:23 Brief Hx & Hospital Course: HPI-patient is an 80-year-old female with a complex medical history that includes peripheral neuropathy, hypertension, atrial fibrillation, osteoarthritis, and dyslipidemia. She presented with complaints of bilateral foot ulcers, which she reports are painless due to her underlying neuropathy. These ulcers are chronic in nature and have persisted since she underwent foot surgery four years ago following a fracture. Despite the lack of pain, the wounds have not healed, and she continues to receive daily wound care from a home nurse. A recent culture taken by her primary care physician revealed a yeast infection at the ulcer sites, prompting a recommendation for her to seek emergency care. Although she is wheelchair-bound, Ms. Johnson remains independent in managing her daily activities at home. She denies experiencing any fever or recent trauma to the affected areas. Urinalysis revealed leukocyte esterase 1+, WBC 3, bacteria few. UDS negative Hospital course-during hospital course patient was treated with ceftriaxone IV. Patient is seen by Podiatry, no surgical intervention. Patient also seen by wound care team, recommended wound care --[place] foam boots to BLE, honey gel and covered and Opti foam. Patient is discharged with the doxycycline 100 mg p.o. b.i.d. for 5 days and recommended to resume other home medication. Patient was advised to follow up with the primary care physician in 1 week. Patient was also advised to resume home health for wound care. Patient was hemodynamically stable on discharge. Assessment and plan #Bilateral lower extremity cellulitis # bilateral lower extremity wound # hypertension # hyperlipidemia # atrial fibrillation # peripheral neuropathy # rheumatoid arthritis # vitamin-D deficiency Plan Doxycycline 100 mg p.o. b.i.d. for 5 days Resume other home medications Resume home health for wound care as per wound care recommendation-[place] foam boots to BLE, honey gel and covered and Opti foam Please follow up with the primary care physician in 1 week Consults/Reason for consult Patient: RADHA JOHNSON Acct:[id number] : 1945 Loc:[facility] Age/Sex: 80/F Unit: [id number] Service Date:05/18/25 Date Seen: May 20, 2025 Reason for Consultation Bilateral foot wounds History of Present Illness Radha Johnson is an 80-year-old female with a complex medical history that includes peripheral neuropathy, hypertension, atrial fibrillation, osteoarthritis, and dyslipidemia. She presented with complaints of bilateral foot ulcers, which she reports are painless due to her underlying neuropathy. These ulcers are chronic in nature and have persisted since she underwent foot surgery four years ago following a fracture. Despite the lack of pain, the wounds have not healed, and she continues to receive daily wound care from a home nurse. A recent culture taken by her primary care physician revealed a yeast infection at the ulcer sites, prompting a recommendation for her to seek emergency care. Although she is wheelchair-bound, Ms. Johnson remains independent in managing her daily activities at home. She denies experiencing any fever or recent trauma to the affected areas Past Medical History See H&P Past Surgical History See H&P Family History: Cardiovascular disease G8 MOTHER, Onset:Unknown Diabetes mellitus G8 MOTHER, Onset:Unknown G8 MOTHER Diabetes mellitus G8 MOTHER, Onset:Unknown G8 MOTHER FH: brain tumor G8 FATHER, Onset:Unknown G8 FATHER FH: brain tumor G8 FATHER, Onset:Unknown G8 FATHER FH: neuropathy G8 MOTHER Allergies: Coded Allergies: Cephalexin (Verified Allergy, Severe, 12/01/24) Penicillins (Verified Allergy, Severe, 12/01/24) Home Meds Active Scripts Levofloxacin Hemihydrate (LEVAQUIN 500 MG) 500 Mg Tab, 500 MG PO DAILY for 10 Days, #10 TAB Prov:CHRIS LANE MD 02/10/25 Doxycycline Hyclate (DOXYCYCLINE HYCLATE) 100 Mg Tab, 100 MG PO BID for 14 Days, #28 TAB Prov:CHRIS LANE MD 02/10/25 Clindamycin Hcl (CLEOCIN) 150 Mg Cap, 1 CAP PO TID, #30 CAP Prov:VENESSA VINCENT MD 01/08/25 Acetaminophen (Acetaminophen) 325 Mg Tab, 325 MG PO Q4HP PRN for 14 Days, #70 TAB Prov:HERNAN BARRERA RESIDENT 01/07/25 Metoclopramide Hcl (Reglan) 5 Mg Tab, 5 MG PO BID for 5 Days, #10 TAB Prov:RUCHI KRAUSE RESIDENT 12/07/24 Acetaminophen (Tylenol) 325 Mg Tb, 325 MG PO TID for 10 Days, #30 TAB Prov:RUCHI KRAUSE RESIDENT 12/07/24 Linezolid (Zyvox) 600 Mg Tab, 600 MG PO BID for 10 Days, #20 TAB Prov:RUCHI KRAUSE 12/07/24 Levofloxacin Hemihydrate (LEVAQUIN 500 MG) 500 Mg Tab, 500 MG PO DAILY for 10 Days, #10 TAB Prov:RUCHI KRAUSE 12/07/24 Reported Medications Duloxetine Hcl (Cymbalta) 60 Mg Cap, 1 CAP PO TID, #90 CAP 3 Refills 01/05/25 Gabapentin (Gabapentin) 300 Mg Cap, 300 MG PO TID for 30 Days, MG 01/05/25 Pregabalin (Lyrica) 100 Mg Cap, 1 CAP PO BID, #60 CAP 2 Refills 01/05/25 Baclofen (Baclofen) 10 Mg Tab, 20 MG PO Q8HP PRN for PAIN SCALE 1 THRU 6 for 30 Days, MG 01/05/25 Losartan Potassium (Losartan Potassium) 100 Mg Tab, 1 TAB PO DAILY, #30 TAB 5 Refills 01/05/25 Baclofen (Baclofen) 20 Mg Tab, 1 TAB PO TID 01/05/25 Apixaban Base (ELIQUIS) 5 Mg Tab, 1 TAB PO BID 01/05/25 Amiodarone HCl (Amiodarone HCl) 200 Mg Tab, 1 TAB PO DAILY 12/02/24 Pantoprazole Sodium Sesquihydr (Pantoprazole Sodium) 40 Mg Tab, 1 TAB PO DAILY 12/01/24 Apixaban Base (ELIQUIS) 5 Mg Tab, 1 TAB PO BID 12/01/24 Tramadol Hcl (Tramadol Hcl) 50 Mg Tab, 1 TAB PO Q4HPRN PRN 12/01/24 Baclofen (Baclofen) 20 Mg Tab, 1 TAB PO TID 12/01/24 Losartan Potassium (Losartan Potassium) 100 Mg Tab, 1 TAB PO DAILY 12/01/24 Current Medications Current Medications Medications (Trade) Dose Ordered Sig/Priscila Route PRN Reason Start Time Stop Time Status Last Admin Levofloxacin/ Dextrose 100 ml @ 100 mls/hr DAILY@2100 IV 05/19/25 21:00 05/19/25 05:03 DC Fluconazole 100 ml @ 100 mls/hr DAILY@2200 IV 05/19/25 22:00 05/19/25 05:03 DC Ceftriaxone Sodium 50 ml @ 100 mls/hr DAILY@09 IV 05/20/25 09:00 05/20/25 09:30 Gabapentin (Neurontin Capsule) 300 mg TID PO 05/19/25 14:00 05/19/25 18:36 DC Duloxetine HCl (Cymbalta Capsule) 60 mg BID PO 05/19/25 22:00 05/20/25 09:32 Pregabalin (Lyrica Capsule) 25 mg BID PO 05/19/25 22:00 05/20/25 10:52 Ergocalciferol (Vitamin D 50,000 Unit) 50,000 unit Q7D PO 05/19/25 17:30 05/19/25 19:06 Pregabalin (Lyrica Capsule) 75 mg BID PO 05/19/25 22:00 05/20/25 10:53 Vital Signs Vital Signs Date Time Temp Pulse Resp B/P (MAP) Pulse Ox O2 Delivery O2 Flow Rate FiO2 05/20/25 09:35 123/78 05/20/25 09:31 85 05/20/25 09:00 97.9 18 97 97.9 05/20/25 08:00 Room Air* 0 21 Physical Exam Dermatological: Skin is dry with mild erythema and some maceration around the wound site No gross deformities noted Mild non-pitting edema present bilaterally Right hallux and heel wound with left medial foot wound all appeared to be mixed fibrotic granular with no surrounding erythema or drainage Vascular: Dorsalis pedis and posterior tibial pulses are 1+ bilaterally Capillary refill is under 2 seconds Skin temperature is warm bilaterally Neurologic: Protective sensation is absent on the plantar forefoot bilaterally Monofilament testing reveals decreased sensation in multiple plantar sites Musculoskeletal: Range of motion at the ankle and MTP joints is within normal limits. Strength is 5/5 in all tested muscle groups. Gait is antalgic due to offloading of the affected limb. Labs/Diagnostic Data Labs Test 05/19/25 15:04 05/19/25 07:32 05/19/25 05:23 05/18/25 10:15 Range/Units Vitamin B12 Level 358 211-911 pg/mL Vitamin D 25-Hydroxy 25.0 L 30.0-100 ng/mL Urine Opiates Screen Neg NEGATIVE Urine Fentanyl Screen Neg NEGATIVE Urine Barbiturates Screen Neg NEGATIVE Urine Phencyclidine Screen Neg NEGATIVE Urine Amphetamines Screen Neg NEGATIVE Urine Benzodiazepines Screen Neg NEGATIVE Urine Cocaine Screen Neg NEGATIVE Urine Cannabinoids Screen Neg NEGATIVE White Blood Count 6.8 4.4-10.8 10^3/uL Red Blood Count 4.01 4.0-5.20 10^6/uL Hemoglobin 12.7 12.2-16.2 g/dL Hematocrit 38.6 36.0-46.0 % Mean Corpuscular Volume 96.2 80.0-100.0 fL Mean Corpuscular Hemoglobin 31.7 28.0-32.0 pg Mean Corpuscular Hemoglobin Concent 32.9 32.0-36.0 g/dL Red Cell Distribution Width 14.9 H 11.8-14.3 % Platelet Count 383 140-450 10^3/uL Mean Platelet Volume 7.3 6.9-10.8 fL Neutrophils (%) (Auto) 59.1 37.0-80.0 % Lymphocytes (%) (Auto) 27.5 10.0-50.0 % Monocytes (%) (Auto) 7.9 0.0-12.0 % Eosinophils (%) (Auto) 4.7 0.0-7.0 % Basophils (%) (Auto) 0.8 0.0-2.0 % Neutrophils # (Auto) 4.0 1.6-8.6 10 ^3/uL Lymphocytes # (Auto) 1.9 0.4-5.4 10 ^3/uL Monocytes # (Auto) 0.5 0-1.3 10 ^3/uL Eosinophils # (Auto) 0.3 0-0.8 10 ^3/uL Basophils # (Auto) 0.1 0-0.2 10 ^3/uL Nucleated Red Blood Cells 0.1 % Sodium Level 139 136-145 mmol/L Potassium Level 4.6 3.5-5.1 mmol/L Chloride Level 107 98-107 mmol/L Carbon Dioxide Level 23 20-31 mmol/L Anion Gap 9 5-15 Blood Urea Nitrogen 8 L 9-23 mg/dL Creatinine 0.90 0.550-1.02 mg/dL Glomerular Filtration Rate Calc 64 >90 mL/min BUN/Creatinine Ratio 8.9 L 10.0-20.0 Serum Glucose 87 74-106 mg/dL Hemoglobin A1c 5.0 <5.7 % A1C Calcium Level 9.0 8.7-10.4 mg/dL Magnesium Level 2.0 1.6-2.6 mg/dL Total Bilirubin 0.3 0.2-1.0 mg/dL Aspartate Amino Transferase (AST) 23 13-40 U/L Alanine Aminotransferase (ALT) 13 7-40 U/L Alkaline Phosphatase 95 46-116 U/L Total Protein 6.2 5.7-8.2 g/dL Albumin 3.3 3.2-4.8 g/dL Folic Acid 9.99 >5.38 ng/mL Thyroid Stimulating Hormone (TSH) 2.01 0.55-4.78 uIU/mL Urine Color Colorless Yellow Urine Clarity Turbid H Clear Urine pH 7.5 5.0-9.0 Urine Specific [place] 1.015 1.001-1.035 Urine Protein Negative Negative Urine Ketones Negative Negative Urine Blood Negative Negative /uL Urine Nitrite Negative Negative Urine Bilirubin Negative Negative Urine Urobilinogen Normal Negative mg/dL Urine Leukocyte Esterase 1+ Negative /uL Urine RBC 2 0 - 4 /hpf Urine Microscopic WBC 3 0-5 /HPF Urine Squamous Epithelial Cells Few <5 /hpf Urine Amorphous Crystals Few None Seen /hpf Urine Bacteria Few H None Seen /hpf Urine Glucose Normal Normal mg/dL Microbiology Date/Time Source Procedure Growth Status 05/19/25 12:40 Foot Gram Stain Pending Resulted 05/19/25 12:40 Foot Wound Culture - Preliminary Resulted Problems(with codes): (1) Pedal edema (2) Bilateral lower leg cellulitis (3) Cellulitis (4) Infected decubitus ulcer (5) Generalized weakness (6) Leukocytosis, unspecified (7) Urinary tract infection (8) Bilateral lower leg cellulitis Plan/Recommendation ASSESSMENT: Patient is a 80 year old seen on the floor for a worsening ulcer PLAN: - The patients chart was reviewed, clinical findings were discussed with the patient, the etiologies of the conditions were discussed in detail, and a treatment plan was agreed to at this time, with both oral and written instructions provided. - reviewed advanced imaging - discussed with the patient that the wounds the srivastava to be healing appropriately - with surgical intervention recommended at this point - dress with Medihoney - follow up with her wound care All questions were answered and concerns addressed to the patient's satisfaction. The patient was given the phone number to the clinic and was told how to make contact with the clinic should any concerns or questions arise. Patient understands that if any questions or concerns arise prior to the next appointment, we should be contacted immediately. FOLLOW-UP: Continue to follow while inpatient Plan discussed with: Patient Visit Coding Podiatry Date of Service if different f: May 20, 2025 Billing Provider: JEFRY HIRSCH DPM Podiatry Common Visit Codes: CONSULT ONLY Podiatry Consult Codes: 22444-YT/OBS CONSLTJ NEW/EST HI 80 JEFRY HIRSCH DPM May 20, 2025 11:59 DICTATED BY:JEFRY HIRSCH DPM TRANSCRIBED DATE/TIME:05/20/25 115 ELECTRONICALLY SIGNED BY:JEFRY HIRSCH DPM 05/20/25 1159 I was physically present for the wise portions of the service provided to patient by JEFRY HIRSCH DPM. I have reviewed the documentation, discussed the case with resident and agree with the resident's documentation excepted as noted. ELECTRONICALLY CO-SIGNED BY: E/M VISIT CODING PERFORMED BY: Operations or Procedures [place] [id number] Ph: [phone] DIAGNOSTIC IMAGING Diagnostic Imaging Report : [id number] Signed PATIENT: RADHA JOHNSON ACCT: [id number] UNIT: [id number] : 1945 [facility]EX[facility] 80 / F ADM STATUS: ADM IN SERVICE 0410 ORDERING PHYSICIAN: BRADY DAMON RESIDENT PROCEDURE(s): LFTCT - CT L FOOT WO CONTRAST REASON: Foot ulcer to rule out osteomyelitus ORDER NUMBER(s): [id number], ACCESSION NUMBER(s): [id number] CLINICAL INDICATION: Foot ulcer to rule out osteomyelitus TECHNIQUE: Noncontrast CT of the left extremity was performed. Sagittal and coronal reformatted images are provided. COMPARISON: CT of the lower extremity dated 12/02/2024. CT Dose: CTDI volume is 7.75 mGy. Dose-length product is 230.9 mGy*cm FINDINGS: No fracture or dislocation in the left lower extremity. There is postsurgical change in the distal tibia with a sideplate and several screws as well as hindfoot arthrodesis with several screws. There is acquired pes planovalgus deformity. Heterogeneous bone mineralization may be related to disuse osteopenia. There is abnormal sclerosis in the calcaneus with mixed lucencies which may represent sequelae of a previous fracture, alternatively may be related to infection. There is secondary osteoarthritis of the hindfoot and midfoot joints. Hammertoe deformities are noted. There subcutaneous edema diffusely throughout the left foot and ankle. The partially imaged right foot demonstrates soft tissue swelling as well. No acute osseous abnormality in the partially included right foot. IMPRESSION: 1. No acute fracture or dislocation. 2. Postsurgical changes in the left distal tibia and hindfoot. 3. Abnormal sclerosis in the calcaneus with mixed lucencies which may represent sequelae of a previous fracture, alternatively may be related to infection. MRI may be obtained for further evaluation. 4. Diffuse subcutaneous edema in the left foot and ankle. All CT scans at this medical facility are performed using dose modulation techniques as appropriate to a performed exam including the following: Automated exposure control was utilized; adjustment of the MA and/or KV according to patient size; and use of iterative reconstruction technique. ATED BY: JUAN LUIS HARTMAN MD DICTATED DATE/TIME: 05/19/25818 SIGNED BY: JUAN LUIS HARTMAN MD SIGNED DATE/TIME: 05/19/25818 CC: Condition at Discharge: Stable Final Diagnosis/Problems List #Bilateral lower extremity cellulitis # bilateral lower extremity wound # hypertension # hyperlipidemia # atrial fibrillation # peripheral neuropathy # rheumatoid arthritis # vitamin-D deficiency Discharge Disposition: Home Discharge Instruct/Medications Diet: Cardiac 2g Na,low cholest Activity: No Restrictions, As Tolerated Follow Up/Referral: Please follow up with the primary care physician in 1 weeks Please resume your home health for wound care Medications: Doxycycline 100 mg p.o. b.i.d. for 5 days Please be mother regular home medications Please follow up with the primary care physician in 1 week Please resume home health for wound care Scheduled Acetaminophen (Tylenol), 325 MG PO TID Amiodarone HCl (Amiodarone HCl), 1 TAB PO DAILY, (Reported) Apixaban Base (Eliquis), 1 TAB PO BID, (Reported) Apixaban Base (Eliquis), 1 TAB PO BID, (Reported) Baclofen (Baclofen), 1 TAB PO TID, (Reported) Baclofen (Baclofen), 1 TAB PO TID, (Reported) Clindamycin Hcl (Cleocin), 1 CAP PO TID Doxycycline (Monohydrate) (Doxycycline), 100 MG PO BID Doxycycline Hyclate (Doxycycline Hyclate), 100 MG PO BID Duloxetine Hcl (Cymbalta), 1 CAP PO TID, (Reported) Gabapentin (Gabapentin), 300 MG PO TID, (Reported) Levofloxacin Hemihydrate (Levaquin 500 Mg), 500 MG PO DAILY Levofloxacin Hemihydrate (Levaquin 500 Mg), 500 MG PO DAILY Linezolid (Zyvox), 600 MG PO BID Losartan Potassium (Losartan Potassium), 1 TAB PO DAILY, (Reported) Losartan Potassium (Losartan Potassium), 1 TAB PO DAILY, (Reported) Metoclopramide Hcl (Reglan), 5 MG PO BID Pantoprazole Sodium Sesquihydr (Pantoprazole Sodium), 1 TAB PO DAILY, (Reported) Pregabalin (Lyrica), 1 CAP PO BID, (Reported) Scheduled PRN Acetaminophen (Acetaminophen), 325 MG PO Q4HP PRN Baclofen (Baclofen), 20 MG PO Q8HP PRN for PAIN SCALE 1 THRU 6, (Reported) Tramadol Hcl (Tramadol Hcl), 1 TAB PO Q4HPRN PRN, (Reported) Discharge Statement: "Patient was advised to return to the ER or call 911 if any headaches, dizziness, shortness of breath, chest pain, abdominal pain, bleeding, fevers, or worsening of medical condition. Patient was counseled about treatment plan, medications, possible side effects, patientverbalized understanding. All questions were answered to the best of my ability. This discharge took greater then 30 minutes in planning, reviewing documentation, counseling the patient, and discussing with other team members." ASSESSMENT ASSESSMENT Assessment Bilateral lower extremity cellulitis Bilateral lower foot wound TAURUS BRYANT RESIDENT May 20, 2025 16:09
[2025-05-20 17:00] VITALS: BP 97/54; PULSE 77; RESP 18; TEMP 97.8; O2SAT 97
== END 2025-05-20 19:59 | disposition home health service (06) | DRG 603 ==
LOC: EDBD 15:55 → ER 15:59 → OVERFLOW 22:26 → EAST 05-19 12:15
PROVIDERS: ADMIT Student in an Organized Health Care Education/Training Program; ATTEND Student in an Organized Health Care Education/Training Program
DX: L03.116 Cellulitis of left lower limb (principal); N39.0 Urinary tract infection, site not specified; L89.159 Pressure ulcer of sacral region, unspecified stage; I48.91 Unspecified atrial fibrillation; G62.9 Polyneuropathy, unspecified; K21.9 Gastro-esophageal reflux disease without esophagitis; E78.5 Hyperlipidemia, unspecified; M06.9 Rheumatoid arthritis, unspecified; E55.9 Vitamin D deficiency, unspecified; L03.115 Cellulitis of right lower limb; I10 Essential (primary) hypertension; M19.09 Primary osteoarthritis, other specified site; S81.802A Unspecified open wound, left lower leg, initial encounter; S81.801A Unspecified open wound, right lower leg, initial encounter; Z88.0 Allergy status to penicillin; Z88.1 Allergy status to other antibiotic agents; Z79.899 Other long term (current) drug therapy; Z90.49 Acquired absence of other specified parts of digestive tract; Y93.89 Activity, other specified; Y92.89 Other specified places as the place of occurrence of the external cause; Y99.8 Other external cause status; X58.XXXA Exposure to other specified factors, initial encounter
CPT/HCPCS: 36415; 73700; 80048; 80053; 80307; 81001; 82306; 82607; 82746; 83036; 83735; 84443; 85025; 87077; 87081; 87086; 87205; 93005; 96365; G0378; J1450; J1956; J3490